=== PATIENT | female | born 1960 | race African-American/Black ===

== ENCOUNTER 2016-08-01 11:22 | Emergency (ER) | payer MEDICARE, MEDICAID ==
[~2016-08-01] VITALS: Ht 152.4 cm; Wt 133.0 kg
[~2016-08-01 11:22] MED LIST: ACET500T3 PO; ALBU6.7H INH; ALPR.5 PO; AMLO10 PO; ASPI-110 PO; BUTA1TAB30 PO; CALC600T25 PO; FURO40TA PO; HYDR-3133 PO; HYDR50TA15 PO; LISI40TA PO; METF500T PO; METO100T PO; MULT-135 PO; NITR0.4S SL; PERC7.5T13 PO; POTA-88 PO; VENTAER INH; WARF-21 PO; WARF-23 PO; ZANT150T2 PO; ZOVI400T PO; [UNRECOGNIZED DRUG - OTHER] PO
[2016-08-01 11:23] VITALS: BP 160/81; PULSE 76; RESP 15; TEMP 97.6; O2SAT 100
--- NOTE | 2016-08-01 11:54 | PD ---
HPI Chief Complaint: Complaint Time Seen by Provider: 11:45 Travel History International Travel<30 days: No Contact w/Intl Traveler<30days: No Traveled to known affect area: No History of Present Illness HPI 56-year-old female came to the emergency room with history of some dysuria and blood when she wiped herself after urinating. Symptoms started last night. Vital signs are stable. Patient has had complete hysterectomy in the past for fibroid. Currently she does not appear to be in any significant distress. PFSH Past Medical History Narrative Medical List of her past medical history as reviewed from the nursing note. Hx Anticoagulant Therapy: Yes (COUMADIN) Arthritis: Yes Asthma: Yes Atrial Fibrillation: Yes Blood Disorders: No Anxiety: Yes Depression: Yes Heart Rhythm Problems: Yes (A-FIB, TAKES COUMADIN AND ASPIRIN) Cancer: No Cardiac Catheterization: Yes (X 2 IN 2005 F/B DR PAUL) Cardiovascular Problems: Yes (2005) High Cholesterol: Yes Chemotherapy: No Chest Pain: Yes Congestive Heart Failure: No COPD: Yes Coronary Artery Disease: Yes Diabetes: Yes Diminished Hearing: No Diverticulitis: Yes Endocrine: Yes Gastrointestinal Disorders: Yes GERD: Yes Genitourinary: No Headaches: Yes Hypertension: Yes Immune Disorder: No Musculoskeletal: Yes (ARTHRITIS BILATERAL KNEES) Neurologic: No Psychiatric: Yes Reproductive: No Respiratory: Yes (SLEEP APNEA, ASTHMA) Myocardial Infarction: Yes Radiation Therapy: No Sleep Apnea: Yes (USES CPAP AT HOME) Thyroid Disease: No PNEUMOCCOCAL Vaccine (Year): NONE Menopausal: Yes : 3 Para: 3 Miscarriage: 0 : 0 Past Surgical History Abdominal Surgery: Yes (CYST AROUND UMBILICUS REMOVED) Appendectomy: Yes Body Medical Devices: C PAP AT NIGHT WITH 2% OXYGEN Section: Yes (X3) Cholecystectomy: Yes Hysterectomy: Yes Neurologic Surgery: No Other Surgery: Yes (abd cyst) Social History Alcohol Use: No Tobacco Use: No Substance Use: No Allergies-Medications (Allergen,Severity, Reaction): Coded Allergies: Robitussin (Verified Allergy, Severe, SHAKES, 08/01/16) Comments List of her allergies reviewed from the nursing note. Reported Meds & Prescriptions Reported Meds & Active Scripts Active Macrobid (Nitrofurantoin Monoh/Nitrofur Macro) 100 Mg Cap 100 Mg PO BID 10 Days Reported Warfarin 7.5 Mg Tab 7.5 Mg PO MOWEFR Warfarin 5 Mg Tab 5 Mg PO SUTUTHSA Zantac (Ranitidine HCl) 150 Mg Tab 150 Mg PO BID Klor-Con M10 (Potassium Chloride Microencaps) 10 Meq Tab 10 Meq PO DAILY Percocet (Oxycodone-Acetaminophen) 7.5-325 mg Tab 1 Tab PO Q6H PRN Nitrostat SL (Nitroglycerin) 0.4 Mg Subl 0.4 Mg SL ONCE Multi Vitamin (Multiple Vitamin) 1 Tab Tab 1 Tab PO DAILY Metoprolol Tartrate 100 Mg Tab 150 Mg PO BID Metformin (Metformin HCl) 500 Mg Tab 500 Mg PO BIDPC With meals Lisinopril 40 Mg Tab 40 Mg PO BID Hydralazine (Hydralazine HCl) 50 Mg Tab 50 Mg PO QID Take with a meal Furosemide 40 Mg Tab 40 Mg PO BID D-400 (Cholecalciferol) 400 Unit Tab 400 Units PO DAILY Calcium (Calcium Carbonate) 600 Mg Tab 600 Mg PO DAILY Butalbital-Acetaminophen 50-325 Mg Tab 1-2 Tab PO Q6HR PRN Do not exceed 6 tablets per day. Hydroxyzine HCl 25 Mg Tab 25 Mg PO QID Aspirin 81 (Aspirin) 81 Mg Tabdr 81 Mg PO DAILY Norvasc (Amlodipine Besylate) 10 Mg Tab 10 Mg PO DAILY Xanax (Alprazolam) 0.5 Mg Tab 0.5 Mg PO BID PRN Ventolin Hfa 18 GM Inh (Albuterol Sulfate) 90 Mcg/Act Aer 2 Puff INH DIRECTED PRN Acetaminophen 500 Mg Tab 1,000 Mg PO Q6H PRN Narrative Medication List of her home medications reviewed from the nursing note. Review of Systems Except as stated in HPI: all other systems reviewed are Neg Physical Exam Narrative GENERAL: Awake, alert, obese, no obvious distress SKIN: Warm and dry. HEAD: Atraumatic. Normocephalic. EYES: Pupils equal and round. No scleral icterus. No injection or drainage. ENT: No nasal bleeding or discharge. Mucous membranes pink and moist. NECK: Trachea midline. No JVD. CARDIOVASCULAR: Regular rate and rhythm. No murmur appreciated. RESPIRATORY: No accessory muscle use. Clear to auscultation. Breath sounds equal bilaterally. GASTROINTESTINAL: Abdomen soft, non-tender, nondistended. Hepatic and splenic margins not palpable. MUSCULOSKELETAL: No obvious deformities. No clubbing. No cyanosis. No edema. NEUROLOGICAL: Awake and alert. No obvious cranial nerve deficits. Motor grossly within normal limits. Normal speech. PSYCHIATRIC: Appropriate mood and affect; insight and judgment normal. Data Data Last Documented VS Vital Signs Date Time Temp Pulse Resp B/P Pulse Ox O2 Delivery O2 Flow Rate FiO2 08/01/16 15:54 80 20 147/69 98 08/01/16 13:57 Room Air 08/01/16 11:23 97.6 Orders Urinalysis - C+S If Indicated (08/01/16 11:57) Urine Culture (08/01/16 12:00) Nitrofurantoin Monohyd Macrocr (Macrobid (08/01/16 13:00) Complete Blood Count With Diff (08/01/16 13:20) Basic Metabolic Panel (Bmp) (08/01/16 13:20) Prothrombin Time / Inr (Pt) (08/01/16 13:20) Labs Laboratory Tests Test 08/01/16 08/01/16 12:00 13:45 Urine Color YELLOW Urine Turbidity HAZY Urine pH 5.0 Urine Specific [place] 1.017 Urine Protein TRACE mg/dL Urine Glucose (UA) NEG mg/dL Urine Ketones NEG mg/dL Urine Occult Blood MOD Urine Nitrite NEG Urine Bilirubin NEG Urine Urobilinogen LESS THAN 2.0 MG/DL Urine Leukocyte Esterase LARGE Urine RBC 7 /hpf Urine WBC 41 /hpf Urine WBC Clumps RARE Urine Squamous Epithelial 1 /hpf Cells Urine Bacteria MOD /hpf Urine Mucus FEW /lpf Microscopic Urinalysis Comment CULTURE INDICATED White Blood Count 7.2 TH/MM3 Red Blood Count 4.72 MIL/MM3 Hemoglobin 13.0 GM/DL Hematocrit 39.3 % Mean Corpuscular Volume 83.3 FL Mean Corpuscular Hemoglobin 27.7 PG Mean Corpuscular Hemoglobin 33.2 % Concent Red Cell Distribution Width 15.3 % Platelet Count 246 TH/MM3 Mean Platelet Volume 7.4 FL Neutrophils (%) (Auto) 58.6 % Lymphocytes (%) (Auto) 27.2 % Monocytes (%) (Auto) 10.4 % Eosinophils (%) (Auto) 3.2 % Basophils (%) (Auto) 0.6 % Neutrophils # (Auto) 4.2 TH/MM3 Lymphocytes # (Auto) 2.0 TH/MM3 Monocytes # (Auto) 0.8 TH/MM3 Eosinophils # (Auto) 0.2 TH/MM3 Basophils # (Auto) 0.0 TH/MM3 CBC Comment DIFF FINAL Differential Comment Prothrombin Time 14.7 SEC Prothromb Time International 1.3 RATIO Ratio Sodium Level 142 MEQ/L Potassium Level 4.0 MEQ/L Chloride Level 106 MEQ/L Carbon Dioxide Level 29.5 MEQ/L Anion Gap 7 MEQ/L Blood Urea Nitrogen 19 MG/DL Creatinine 0.87 MG/DL Estimat Glomerular Filtration 81 ML/MIN Rate Random Glucose 100 MG/DL Calcium Level 8.9 MG/DL [facility] Medical Decision Making Medical Screen Exam Complete: Yes Emergency Medical Condition: Yes Medical Record Reviewed: Yes Differential Diagnosis UTI, hemorrhagic cystitis Narrative Course 1:19 PM UA suggestive of UTI. I've given her dose of Macrobid. Given the fact that patient is on Coumadin I've ordered INR for her. Procedures EKG Prior to Arrival: No Diagnosis Primary Impression: UTI (urinary tract infection) Qualified Code: N39.0 - Urinary tract infection with hematuria, site unspecified Referrals: Primary Care Physician 2 days Additional Instructions: Please return to the ER if the condition worsens or any other new concerns. Take medication as per the prescription direction. Follow-up with your primary care in couple days. Med/Other Pt SpecificInfo: Prescription(s) given Scripts Nitrofurantoin Monohydrate Macrocrystals (Macrobid)100 Mg Wii362 Mg PO BID 10 Days Ref 0 Prov:Toby Livingston MD 08/01/16 Disposition: 01 DISCHARGE HOME Condition: Stable Toby Livingston MD Aug 01, 2016 11:54
[2016-08-01 12:02] VITALS: BP 139/73; PULSE 73; RESP 20; O2SAT 96
[2016-08-01 12:42] LABS: BACTERIA, URINE MOD /hpf; BLOOD, URINE MOD (NEG); COMMENT (UR) CULTURE INDICATED; CULTURE IF INDICATED CULTURE INDICATED; GLUCOSE,URINE NEG (NEG); KETONE, URINE NEG (NEG); MUCUS URINE FEW /lpf (OCC); NITRITE,URINE NEG (NEG); SQUAMOUS EPITHELIAL CELL URINE 1 /hpf (0-5); URINE COLOR YELLOW (YELLW/STRAW)
[2016-08-01] MEDS ORDERED: NITROFURANTOIN MONOHYD MACROCR 100 MG CAP PO ONE (13:00)
[2016-08-01 13:57] VITALS: BP 145/77; PULSE 72; RESP 20; O2SAT 98
[2016-08-01 14:05] LABS: AUTOMATED NEUTROPHIL # 4.2 TH/MM3 (1.8-7.7); BASOPHIL % 0.6 % (0.0-2.0); EOSINOPHIL # 0.2 TH/MM3 (0-0.4); EOSINOPHIL % 3.2 % (0.0-4.0); HEMATOCRIT 39.3 % (35.0-46.0); HEMO FLAGS DIFF FINAL; LYMPH % 27.2 % (9.0-44.0); MEAN CELL VOLUME 83.3 FL (80.0-100.0); MEAN CORPUSCULAR HEMOGLOBIN 27.7 PG (27.0-34.0); MEAN CORPUSCULAR HGB CONC 33.2 % (32.0-36.0); MONO % 10.4 % (0.0-8.0); NEUT % 58.6 % (16.0-70.0); PLATELET COUNT 246 TH/MM3 (150-450); RED BLOOD COUNT 4.72 MIL/MM3 (4.00-5.30); RED CELL DISTRIBUTION WIDTH 15.3 % (11.6-17.2); WHITE BLOOD COUNT 7.2 TH/MM3 (4.0-11.0)
[2016-08-01 14:10] LABS: INTERNATIONAL NORMALIZED RATIO 1.3 RATIO; PROTHROMBIN TIME - PATIENT 14.7 SEC (9.8-11.6)
[2016-08-01] MEDS ORDERED: MACR100C2 PO (14:14)
[2016-08-01 14:22] LABS: BICARBONATE 29.5 MEQ/L (21.0-32.0)
[2016-08-01 15:54] VITALS: BP 147/69
== END 2016-08-01 16:50 | disposition home or self-care (01) ==
LOC: NEPC 11:22
DX: N39.0 Urinary tract infection, site not specified (principal); B96.1 Klebsiella pneumoniae [K. pneumoniae] as the cause of diseases classified elsewhere; R31.9 Hematuria, unspecified
CPT/HCPCS: 80048; 81001; 85025; 85610; 87077; 87086; 87186; 99283

== ENCOUNTER 2016-10-11 12:57 | Emergency (ER) | payer MEDICARE, MEDICAID ==
[~2016-10-11] VITALS: Ht 152.4 cm; Wt 135.0 kg
[~2016-10-11 12:57] MED LIST changes: -ALBU6.7H INH; +MACR100C2 PO; -ZOVI400T PO
[2016-10-11 12:59] VITALS: BP 173/82; PULSE 82; RESP 24; TEMP 97.9; O2SAT 97
[2016-10-11 15:39] LABS: BACTERIA, URINE MOD /hpf; BLOOD, URINE NEG (NEG); COMMENT (UR) CULTURE INDICATED; CULTURE IF INDICATED CULTURE INDICATED; GLUCOSE,URINE NEG (NEG); KETONE, URINE NEG (NEG); MUCUS URINE FEW /lpf (OCC); NITRITE,URINE NEG (NEG); PH, URINE 5.5 (5.0-8.5); SQUAMOUS EPITHELIAL CELL URINE 3 /hpf (0-5); URINE COLOR YELLOW (YELLW/STRAW)
[2016-10-11 16:34] VITALS: BP 155/91; PULSE 84; RESP 18; RESP 20; O2SAT 98; O2SAT 99
[2016-10-11] MEDS ORDERED: SODIUM CHLOR 0.9% 1000 ML INJ 1,000 ML IV SCH (16:43)
[2016-10-11] MEDS ORDERED: MORPHINE SULFATE 4 MG/ML INJ IV PUSH ONE (16:45)
[2016-10-11] MEDS ORDERED: ONDANSETRON HCL 4 MG/2 ML VIAL IVP ONE (16:45)
--- NOTE | 2016-10-11 17:14 | PD ---
HPI Chief Complaint: Abdominal Pain Time Seen by Provider: 17:10 Travel History International Travel<30 days: No Contact w/Intl Traveler<30days: No Traveled to known affect area: No History of Present Illness HPI 56-year-old female that presents to the ED for evaluation of nausea and left lower quadrant abdominal pain. Per patient she's had this before and feels very similar to her diverticulitis in the past. Per patient she's been hoping that he would get better but he has not. This has been ongoing for 2 days. Per patient she also feels dizzy and stating that she feels like the room spinning. Per patient this is normal with this scan is symptoms. She denies any bowel movement issues. States having some nausea but no actual vomiting. Nothing seems to make the pain better or worse. Per patient she went to jew today and after jew she felt that the symptoms were improving so she came here instead. She has an INT to [employer]. She has not taken anything for this. Pain stays mainly in the right lower quadrant. Per patient pain is 6 out of 10. Does not radiate. Denies any urinary symptoms. No vaginal discharge or bleeding. PFSH Past Medical History Hx Anticoagulant Therapy: Yes (COUMADIN) Arthritis: Yes Asthma: Yes Atrial Fibrillation: Yes Blood Disorders: No Anxiety: Yes Depression: Yes Heart Rhythm Problems: Yes (A-FIB, TAKES COUMADIN AND ASPIRIN) Cancer: No Cardiac Catheterization: Yes (X 2 IN 2005 F/B DR PAUL) Cardiovascular Problems: Yes (CO, AFIB) High Cholesterol: Yes Chemotherapy: No Chest Pain: Yes Congestive Heart Failure: No COPD: Yes Coronary Artery Disease: Yes Diabetes: Yes Patient Takes Glucophage: Yes Diminished Hearing: No Diverticulitis: Yes Endocrine: Yes Gastrointestinal Disorders: Yes GERD: Yes Genitourinary: No Headaches: Yes Hypertension: Yes Immune Disorder: No Musculoskeletal: Yes (ARTHRITIS BILATERAL KNEES) Neurologic: No Psychiatric: Yes Reproductive: No Respiratory: Yes (SLEEP APNEA, ASTHMA) Myocardial Infarction: Yes Radiation Therapy: No Sleep Apnea: Yes (USES CPAP AT HOME) Thyroid Disease: No Tetanus Vaccination: Unknown Influenza Vaccination: No PNEUMOCCOCAL Vaccine (Year): NONE Menopausal: Yes : 3 Para: 3 Miscarriage: 0 : 0 Past Surgical History Abdominal Surgery: Yes (CYST AROUND UMBILICUS REMOVED) Appendectomy: Yes Body Medical Devices: C PAP AT NIGHT WITH 2% OXYGEN Section: Yes (X3) Cholecystectomy: Yes Hysterectomy: Yes Neurologic Surgery: No Other Surgery: Yes (abd cyst) Family History Family Myocardial Infarction: Yes Social History Alcohol Use: No Tobacco Use: No Substance Use: No Allergies-Medications (Allergen,Severity, Reaction): Coded Allergies: Robitussin (Verified Allergy, Severe, SHAKES, 10/11/16) Reported Meds & Prescriptions Reported Meds & Active Scripts Active Reported Warfarin 7.5 Mg Tab 7.5 Mg PO MOWEFR Warfarin 5 Mg Tab 5 Mg PO SUTUTHSA Zantac (Ranitidine HCl) 150 Mg Tab 150 Mg PO BID Klor-Con M10 (Potassium Chloride Microencaps) 10 Meq Tab 10 Meq PO DAILY Percocet (Oxycodone-Acetaminophen) 7.5-325 mg Tab 1 Tab PO Q6H PRN Nitrostat SL (Nitroglycerin) 0.4 Mg Subl 0.4 Mg SL ONCE Multi Vitamin (Multiple Vitamin) 1 Tab Tab 1 Tab PO DAILY Metoprolol Tartrate 100 Mg Tab 150 Mg PO BID Metformin (Metformin HCl) 500 Mg Tab 500 Mg PO BIDPC With meals Lisinopril 40 Mg Tab 40 Mg PO BID Hydralazine (Hydralazine HCl) 50 Mg Tab 50 Mg PO QID Take with a meal Furosemide 40 Mg Tab 40 Mg PO BID D-400 (Cholecalciferol) 400 Unit Tab 400 Units PO DAILY Calcium (Calcium Carbonate) 600 Mg Tab 600 Mg PO DAILY Butalbital-Acetaminophen 50-325 Mg Tab 1-2 Tab PO Q6HR PRN Do not exceed 6 tablets per day. Hydroxyzine HCl 25 Mg Tab 25 Mg PO QID Aspirin 81 (Aspirin) 81 Mg Tabdr 81 Mg PO DAILY Norvasc (Amlodipine Besylate) 10 Mg Tab 10 Mg PO DAILY Xanax (Alprazolam) 0.5 Mg Tab 0.5 Mg PO BID PRN Ventolin Hfa 18 GM Inh (Albuterol Sulfate) 90 Mcg/Act Aer 2 Puff INH DIRECTED PRN Acetaminophen 500 Mg Tab 1,000 Mg PO Q6H PRN Review of Systems General / Constitutional: No: Fever, Chills, Weight Gain, Weight Loss, Other Eyes: No: Diploplia, Blurred Vision, Photophobia, Drainage, Redness, Foreign Body Sensation, Pain, Tearing, Blind Spots, Visual changes, Blindness, Other HENT: No: Headaches, Vertigo, Lightheadedness, Sore Throat, Rhinitis, Rhinorrhea, Congestion, Nosebleed, Neck Stiffness, Neck Pain, Masses, Gingival Bleeding, Dental Difficulties, Ear Discharge, Earache, Other Cardiovascular: No: Chest Pain or Discomfort, Palpitations, Irregular Rhythm, Tachycardia, Diaphoresis, Syncope, Dyspnea on exertion, Varicosities, Edema, Cyanosis, Varicosities, Phlebitis, Claudication, Other Respiratory: No: Cough, Shortness of Breath, Wheezing, Sneezing, Orthopnea, Hemoptysis, Stridor, Night Sweats, Pleuritic Pain, Other Gastrointestinal: Positive: Nausea, Vomiting, Abdominal Pain, No: Diarrhea, Hematemesis, Hematochezia, Constipation, Changes in Bowel Habits, Indigestion, Dysphagia, Loss of Appetite, Other Genitourinary: No: Urgency, Frequency, Dysuria, Nocturia, Hematuria, Decreased Urinary Output, Oliguria, Hesitancy, Dribbling, Incontinence, Pelvic Pain, Flank Pain, Dyspareunia, Discharge, Dysmenorrhea, Menorrhagia, Metorrhagia, Vaginal Bleeding, Other Musculoskeletal: No: Myalgias, Arthralgias, Limited ROM, Weakness, Cramping, Edema, Pain, Atrophy, Other Skin: No Rash, No Itching, No Dryness, No Lumps, No Hives, No Change in Pigmentation, No Change in nails, No Alopecia, No Lesions, No Breast Lumps, No Breast Tenderness, No Breast Swelling, No Other Neurologic: No: Weakness, Dizziness, Syncope, Focal Abnormalities, Coordination Problem, Tremor, Ataxia, Headache, Change in Mentation, Slurred Speech, Paresthesia, Incontinence, Seizures, Sensory Disturbance, Other Psychiatric: No: Anxiety, Depression, Suicidal Ideations, Disorder of Thought, Mood Disorder, Substance Abuse, Homicidal Ideation, Other Endocrine: No: Heat Intolerance, Cold Intolerance, Polyuria, Polydipsia, Other Hematologic/Lymphatic: No: Easy Bruising, Lymph Node Enlargement, Other Physical Exam Narrative GENERAL: SKIN: Warm and dry. HEAD: Atraumatic. Normocephalic. EYES: Pupils equal and round. No scleral icterus. No injection or drainage. ENT: No nasal bleeding or discharge. Mucous membranes pink and moist. Tongue is midline. No uvula deviation. NECK: Trachea midline. No JVD. CARDIOVASCULAR: Regular rate and rhythm. No murmurs, S3, S4. RESPIRATORY: No accessory muscle use. Clear to auscultation. Breath sounds equal bilaterally. GASTROINTESTINAL: Abdomen soft, tenderness to palpation on the left lower quadrant, nondistended. Hepatic and splenic margins not palpable. MUSCULOSKELETAL: Extremities without clubbing, cyanosis, or edema. No obvious deformities. Full range of motion of the upper and lower extremities bilaterally. 2+ pulses bilaterally. NEUROLOGICAL: Awake and alert. No obvious cranial nerve deficits. Motor grossly within normal limits. Five out of 5 muscle strength in the arms and legs. Normal speech. PSYCHIATRIC: Appropriate mood and affect; insight and judgment normal. Data Data Last Documented VS Vital Signs Date Time Temp Pulse Resp B/P Pulse Ox O2 Delivery O2 Flow Rate FiO2 10/11/16 18:38 86 18 159/73 96 Room Air 10/11/16 12:59 97.9 Orders Complete Blood Count With Diff (10/11/16 13:23) Comprehensive Metabolic Panel (10/11/16 13:23) Urinalysis - C+S If Indicated (10/11/16 13:23) Iv Access Insert/Monitor (10/11/16 13:23) Oxygen Administration (10/11/16 13:23) Oximetry (10/11/16 13:23) Lipase (10/11/16 13:23) Urine Culture (10/11/16 13:37) Morphine Inj (Morphine Inj) (10/11/16 16:45) Ondansetron Inj (Zofran Inj) (10/11/16 16:45) Sodium Chlor 0.9% 1000 Ml Inj (Ns 1000 M (10/11/16 16:43) Ct Abd/Pel W Iv Contrast(Rout) (10/11/16 ) Orthostatic Vital Signs (10/11/16 17:44) Iohexol 350 Inj (Omnipaque 350 Inj) (10/11/16 18:18) Labs Laboratory Tests Test 10/11/16 10/11/16 13:37 16:45 Urine Color YELLOW Urine Turbidity HAZY Urine pH 5.5 Urine Specific [place] 1.016 Urine Protein TRACE mg/dL Urine Glucose (UA) NEG mg/dL Urine Ketones NEG mg/dL Urine Occult Blood NEG Urine Nitrite NEG Urine Bilirubin NEG Urine Urobilinogen LESS THAN 2.0 MG/DL Urine Leukocyte Esterase NEG Urine RBC 1 /hpf Urine WBC 4 /hpf Urine Squamous Epithelial 3 /hpf Cells Urine Bacteria MOD /hpf Urine Mucus FEW /lpf Microscopic Urinalysis Comment CULTURE INDICATED White Blood Count 9.3 TH/MM3 Red Blood Count 4.53 MIL/MM3 Hemoglobin 12.9 GM/DL Hematocrit 37.9 % Mean Corpuscular Volume 83.7 FL Mean Corpuscular Hemoglobin 28.5 PG Mean Corpuscular Hemoglobin 34.1 % Concent Red Cell Distribution Width 15.0 % Platelet Count 278 TH/MM3 Mean Platelet Volume 7.7 FL Neutrophils (%) (Auto) 57.6 % Lymphocytes (%) (Auto) 28.4 % Monocytes (%) (Auto) 11.0 % Eosinophils (%) (Auto) 2.4 % Basophils (%) (Auto) 0.6 % Neutrophils # (Auto) 5.3 TH/MM3 Lymphocytes # (Auto) 2.6 TH/MM3 Monocytes # (Auto) 1.0 TH/MM3 Eosinophils # (Auto) 0.2 TH/MM3 Basophils # (Auto) 0.1 TH/MM3 CBC Comment DIFF FINAL Differential Comment Sodium Level 141 MEQ/L Potassium Level 3.6 MEQ/L Chloride Level 105 MEQ/L Carbon Dioxide Level 28.6 MEQ/L Anion Gap 7 MEQ/L Blood Urea Nitrogen 9 MG/DL Creatinine 0.95 MG/DL Estimat Glomerular Filtration 73 ML/MIN Rate Random Glucose 87 MG/DL Calcium Level 9.2 MG/DL Total Bilirubin 0.4 MG/DL Aspartate Amino Transf 12 U/L (AST/SGOT) Alanine Aminotransferase 22 U/L (ALT/SGPT) Alkaline Phosphatase 67 U/L Total Protein 8.3 GM/DL Albumin 3.4 GM/DL Lipase 402 U/L [facility] Medical Decision Making Medical Screen Exam Complete: Yes Emergency Medical Condition: Yes Medical Record Reviewed: Yes Interpretation(s) UA shows some bacteria Differential Diagnosis Diverticulitis versus gastroenteritis versus gastritis versus dizziness versus hypotension versus bleed Narrative Course 56-year-old female that presents to the ED for evaluation of possible diverticulitis. Patient was properly examined and was found to have signs and symptoms consistent with appears to be likely diverticulitis from history. Labs and imaging ordered. Patient was given IV fluids and medications. Case was signed out to my attending pending dispo. Manny Correa Oct 11, 2016 17:14
[2016-10-11 17:33] LABS: AUTOMATED NEUTROPHIL # 5.3 TH/MM3 (1.8-7.7); BASOPHIL # 0.1 TH/MM3 (0-0.2); BASOPHIL % 0.6 % (0.0-2.0); EOSINOPHIL # 0.2 TH/MM3 (0-0.4); EOSINOPHIL % 2.4 % (0.0-4.0); HEMATOCRIT 37.9 % (35.0-46.0); HEMO FLAGS DIFF FINAL; LYMPH % 28.4 % (9.0-44.0); LYMPHOCYTE # 2.6 TH/MM3 (1.0-4.8); MEAN CELL VOLUME 83.7 FL (80.0-100.0); MEAN CORPUSCULAR HEMOGLOBIN 28.5 PG (27.0-34.0); MEAN CORPUSCULAR HGB CONC 34.1 % (32.0-36.0); NEUT % 57.6 % (16.0-70.0); PLATELET COUNT 278 TH/MM3 (150-450); RED BLOOD COUNT 4.53 MIL/MM3 (4.00-5.30); WHITE BLOOD COUNT 9.3 TH/MM3 (4.0-11.0)
[2016-10-11 17:50] LABS: ALT (GPT) 22 U/L (10-53); ANION GAP 7 MEQ/L (5-15); AST (GOT) 12 U/L (15-37); BICARBONATE 28.6 MEQ/L (21.0-32.0); BLOOD UREA NITROGEN 9 MG/DL (7-18); CHLORIDE 105 MEQ/L (98-107); GLOMERULAR FILTRATION RATE 73 ML/MIN (>89); POTASSIUM 3.6 MEQ/L (3.5-5.1); SODIUM (NA) 141 MEQ/L (136-145)
[2016-10-11 17:52] LABS: ALKALINE PHOSPHATASE 67 U/L (45-117); TOTAL BILIRUBIN ADULT 0.4 MG/DL (0.2-1.0)
[2016-10-11] MEDS ORDERED: IOHEXOL 350 MG/ML 10 ML VIAL (for RAD DIAG) IV ONE (18:18)
[2016-10-11 18:33] VITALS: BP_SYST 159; BP_SYST 161; BP_SYST 206; BP_DIAS 114; BP_DIAS 69; BP_DIAS 73; RESP 18
[2016-10-11 18:38] VITALS: BP 159/73; PULSE 86; RESP 18; O2SAT 96
--- NOTE | 2016-10-11 18:48 | RADRPT ---
EXAM DATE/TIME: 10/11/2016 18:08 [place] COMPARISON: No previous studies available for comparison. INDICATIONS : Diffuse abdomen pain today. IV CONTRAST: 85 cc Omnipaque 350 (iohexol) IV ORAL CONTRAST: No oral contrast ingested. RADIATION DOSE: 27.07 CTDIvol (mGy) MEDICAL HISTORY : Hypertension. diabetes SURGICAL HISTORY : Hysterectomy. Appendectomy.Cholecystectomy. ENCOUNTER: Initial ACUITY: 1 day PAIN SCALE: 7/10 LOCATION: Bilateral abdomen TECHNIQUE: Volumetric scanning of the abdomen and pelvis was performed. Using automated exposure control and ad justment of the mA and/or kV according to patient size, radiation dose was kept as low as reasonably achievable to obtain optimal diagnostic quality images. FINDINGS: Lung bases are clear. No acute findings in the liver, spleen, adrenals, kidneys or pancreas. Previous cholecystectomy. There is acute sigmoid diverticulitis with mural thickening and perisigmoid inflammatory changes prox imally. No abscess, obstruction, free fluid or free air. There is a fat containing umbilical hernia measuring about 7.9 cm in maximal diameter. No acute bony abnormalities. CONCLUSION: 1. Acute sigmoid diverticulitis without abscess, obstruction, free fluid or free air. Vernon Montana MD on October 11, 2016 at 18:40 Board Certified Radiologist. This report was verified electronically.
[2016-10-11] MEDS ORDERED: CIPR-9 PO (19:36)
[2016-10-11] MEDS ORDERED: METR-1 PO (19:36)
[2016-10-11] MEDS ORDERED: NORC5TAB PO (19:36)
--- NOTE | 2016-10-11 19:37 | PD ---
Physical Exam Date Seen by Provider: Oct 11, 2016 Narrative Patient presents for left-sided abdominal pain Data Data Last Documented VS Vital Signs Date Time Temp Pulse Resp B/P Pulse Ox O2 Delivery O2 Flow Rate FiO2 10/11/16 18:38 86 18 159/73 96 Room Air 10/11/16 12:59 97.9 Orders Complete Blood Count With Diff (10/11/16 13:23) Comprehensive Metabolic Panel (10/11/16 13:23) Urinalysis - C+S If Indicated (10/11/16 13:23) Iv Access Insert/Monitor (10/11/16 13:23) Oxygen Administration (10/11/16 13:23) Oximetry (10/11/16 13:23) Lipase (10/11/16 13:23) Urine Culture (10/11/16 13:37) Morphine Inj (Morphine Inj) (10/11/16 16:45) Ondansetron Inj (Zofran Inj) (10/11/16 16:45) Sodium Chlor 0.9% 1000 Ml Inj (Ns 1000 M (10/11/16 16:43) Ct Abd/Pel W Iv Contrast(Rout) (10/11/16 ) Orthostatic Vital Signs (10/11/16 17:44) Iohexol 350 Inj (Omnipaque 350 Inj) (10/11/16 18:18) Labs Laboratory Tests Test 10/11/16 10/11/16 13:37 16:45 Urine Color YELLOW Urine Turbidity HAZY Urine pH 5.5 Urine Specific [place] 1.016 Urine Protein TRACE mg/dL Urine Glucose (UA) NEG mg/dL Urine Ketones NEG mg/dL Urine Occult Blood NEG Urine Nitrite NEG Urine Bilirubin NEG Urine Urobilinogen LESS THAN 2.0 MG/DL Urine Leukocyte Esterase NEG Urine RBC 1 /hpf Urine WBC 4 /hpf Urine Squamous Epithelial 3 /hpf Cells Urine Bacteria MOD /hpf Urine Mucus FEW /lpf Microscopic Urinalysis Comment CULTURE INDICATED White Blood Count 9.3 TH/MM3 Red Blood Count 4.53 MIL/MM3 Hemoglobin 12.9 GM/DL Hematocrit 37.9 % Mean Corpuscular Volume 83.7 FL Mean Corpuscular Hemoglobin 28.5 PG Mean Corpuscular Hemoglobin 34.1 % Concent Red Cell Distribution Width 15.0 % Platelet Count 278 TH/MM3 Mean Platelet Volume 7.7 FL Neutrophils (%) (Auto) 57.6 % Lymphocytes (%) (Auto) 28.4 % Monocytes (%) (Auto) 11.0 % Eosinophils (%) (Auto) 2.4 % Basophils (%) (Auto) 0.6 % Neutrophils # (Auto) 5.3 TH/MM3 Lymphocytes # (Auto) 2.6 TH/MM3 Monocytes # (Auto) 1.0 TH/MM3 Eosinophils # (Auto) 0.2 TH/MM3 Basophils # (Auto) 0.1 TH/MM3 CBC Comment DIFF FINAL Differential Comment Sodium Level 141 MEQ/L Potassium Level 3.6 MEQ/L Chloride Level 105 MEQ/L Carbon Dioxide Level 28.6 MEQ/L Anion Gap 7 MEQ/L Blood Urea Nitrogen 9 MG/DL Creatinine 0.95 MG/DL Estimat Glomerular Filtration 73 ML/MIN Rate Random Glucose 87 MG/DL Calcium Level 9.2 MG/DL Total Bilirubin 0.4 MG/DL Aspartate Amino Transf 12 U/L (AST/SGOT) Alanine Aminotransferase 22 U/L (ALT/SGPT) Alkaline Phosphatase 67 U/L Total Protein 8.3 GM/DL Albumin 3.4 GM/DL Lipase 402 U/L MDM Supervised Visit with VIRAL: Yes Narrative Course I, Dr. Boyd, have reviewed the advance practice practitioner's documentation and am in agreement, met with the patient face to face, made the diagnosis, and the medical decision making was done by me. *My assessment and Findings: The patient has diffuse abdominal tenderness without guarding or rebound. CBC & BMP Diagram 10/11/16 16:45 Last Impressions Abdomen/Pelvis CT 10/11/16 0000 Signed Impressions: Service Date/Time: Tuesday, October 11, 2016 18:08 - CONCLUSION: 1. Acute sigmoid diverticulitis without abscess, obstruction, free fluid or free air. Vernon Montana MD The patient will be treated as an outpatient for diverticulitis. Diagnosis Primary Impression: Diverticulitis large intestine w/o perforation or abscess w/o bleeding Patient Instructions: Diverticulitis (DC), General Instructions, Narcotic given in the ED Scripts Hydrocodone-Acetaminophen ([place])5-325 mg Tab1 Tab PO Q4H PRN (PAIN) #12 TAB Ref 0 Prov:Nita Boyd MD 10/11/16 Metronidazole (Flagyl)500 Mg Dog702 Mg PO BID 7 Days Ref 0 Prov:Nita Boyd MD 10/11/16 Ciprofloxacin (Cipro)500 Mg [id number] Mg PO BID 10 Days Ref 0 Prov:Nita Boyd MD 10/11/16 Disposition: 01 DISCHARGE HOME Condition: Stable Nita Boyd MD Oct 11, 2016 19:37
[2016-10-11] MEDS ORDERED: CIPROFLOXACIN 400 MG PREMIX 200 ML IV ONE (19:45)
[2016-10-11] MEDS ORDERED: metroNIDAZOLE 500 MG INJ 100 ML IV ONE (19:45)
[2016-10-11 20:30] VITALS: BP 158/71; PULSE 81; RESP 20; O2SAT 97
[2016-10-11 22:58] VITALS: BP 159/70; PULSE 85; RESP 20; O2SAT 97
== END 2016-10-11 22:59 | disposition home or self-care (01) ==
LOC: NEPA 12:57
DX: K57.32 Diverticulitis of large intestine without perforation or abscess without bleeding (principal); R42 Dizziness and giddiness; E11.9 Type 2 diabetes mellitus without complications; I10 Essential (primary) hypertension; E78.00 Pure hypercholesterolemia, unspecified; G47.30 Sleep apnea, unspecified; Z79.01 Long term (current) use of anticoagulants; Z79.84 Long term (current) use of oral hypoglycemic drugs; Z87.39 Personal history of other diseases of the musculoskeletal system and connective tissue; Z87.09 Personal history of other diseases of the respiratory system; Z86.79 Personal history of other diseases of the circulatory system; Z86.59 Personal history of other mental and behavioral disorders; Z87.19 Personal history of other diseases of the digestive system
CPT/HCPCS: 74177; 80053; 81001; 83690; 85025; 87086; 96361; 96365; 96367; 96375; 99284; J0744; J2270; J2405; J7030; Q9967

== ENCOUNTER 2016-10-16 05:52 | Emergency (ER) | payer MEDICARE, MEDICAID ==
[~2016-10-16 05:52] MED LIST changes: +CIPR-9 PO; -MACR100C2 PO; +METR-1 PO; +NORC5TAB PO
[2016-10-16 05:53] VITALS: BP 187/92; PULSE 86; RESP 16; TEMP 98; O2SAT 95
--- NOTE | 2016-10-16 06:23 | PD ---
HPI Chief Complaint: Injury Time Seen by Provider: 06:16 Travel History International Travel<30 days: No Contact w/Intl Traveler<30days: No Traveled to known affect area: No History of Present Illness HPI 56-year-old [id number] black female presents to emergency Department with complaints of right shoulder pain after falling off a hospital stretcher here at [place] waiting to get blood drawn. She states that she was in the triage area on a examination stretcher when she leaned over to the right side causing the stretcher to tip up and fall off onto the ground and into the cheek bucket alongside the bed. The patient states that she was assisted up off the ground. She was given ice pack. She was eventually seen in the back for her presenting complaint of abdominal pain. She was diagnosed with acute diverticulitis and given Lortab and antibiotics. She neglected to tell the treating ER physician of a fall. She states that she did not have any significant pain initially for the first day. She states that it was later on that she started developing pain. She states that her abdominal pain/ diverticulitis is improving but now she is having more problems with her right arm. She states that she has pain in the anterior portion of her shoulder. She has difficulty raising her hand beyond the level was shoulder. She denies any numbness, tingling. No focal weakness. No injury to the head or neck. Pain is moderate. Worse with movement. Some relief with the remaining still and holding her arm against her body. She denies any prior injury. She states that she had taken pictures in the examination room of the stretcher at the time she had fallen off. PFSH Past Medical History Hx Anticoagulant Therapy: Yes Arthritis: Yes Asthma: Yes Atrial Fibrillation: Yes Blood Disorders: No Anxiety: Yes Depression: Yes Heart Rhythm Problems: Yes (A-FIB, TAKES COUMADIN AND ASPIRIN) Cancer: No Cardiac Catheterization: Yes (X 2 IN 2005 F/B DR PAUL) Cardiovascular Problems: Yes High Cholesterol: Yes Chemotherapy: No Chest Pain: Yes Congestive Heart Failure: No COPD: Yes Coronary Artery Disease: Yes Diabetes: Yes Patient Takes Glucophage: Yes Diminished Hearing: No Diverticulitis: Yes Endocrine: Yes Gastrointestinal Disorders: Yes GERD: Yes Genitourinary: No Headaches: Yes Hypertension: Yes Immune Disorder: No Musculoskeletal: Yes (ARTHRITIS BILATERAL KNEES) Neurologic: No Psychiatric: Yes Reproductive: No Respiratory: Yes Myocardial Infarction: Yes Radiation Therapy: No Sleep Apnea: Yes (USES CPAP AT HOME) Thyroid Disease: No PNEUMOCCOCAL Vaccine (Year): NONE ?: Not Menopausal: Yes : 3 Para: 3 Miscarriage: 0 : 0 Past Surgical History Abdominal Surgery: Yes (CYST AROUND UMBILICUS REMOVED) Appendectomy: Yes Body Medical Devices: C PAP AT NIGHT WITH 2% OXYGEN Section: Yes (X3) Cholecystectomy: Yes Hysterectomy: Yes Neurologic Surgery: No Other Surgery: Yes (abd cyst) Family History Family Myocardial Infarction: Yes Social History Alcohol Use: No Tobacco Use: No Substance Use: No Allergies-Medications (Allergen,Severity, Reaction): Coded Allergies: Robitussin (Verified Allergy, Severe, SHAKES, 10/16/16) Reported Meds & Prescriptions Reported Meds & Active Scripts Active [place] (Hydrocodone-Acetaminophen) 5-325 mg Tab 1 Tab PO Q4H PRN Flagyl (Metronidazole) 500 Mg Tab 500 Mg PO BID 7 Days Cipro (Ciprofloxacin HCl) 500 Mg Tab 500 Mg PO BID 10 Days Reported Warfarin 7.5 Mg Tab 7.5 Mg PO MOWEFR Warfarin 5 Mg Tab 5 Mg PO SUTUTHSA Zantac (Ranitidine HCl) 150 Mg Tab 150 Mg PO BID Klor-Con M10 (Potassium Chloride Microencaps) 10 Meq Tab 10 Meq PO DAILY Percocet (Oxycodone-Acetaminophen) 7.5-325 mg Tab 1 Tab PO Q6H PRN Nitrostat SL (Nitroglycerin) 0.4 Mg Subl 0.4 Mg SL ONCE Multi Vitamin (Multiple Vitamin) 1 Tab Tab 1 Tab PO DAILY Metoprolol Tartrate 100 Mg Tab 150 Mg PO BID Metformin (Metformin HCl) 500 Mg Tab 500 Mg PO BIDPC With meals Lisinopril 40 Mg Tab 40 Mg PO BID Hydralazine (Hydralazine HCl) 50 Mg Tab 50 Mg PO QID Take with a meal Furosemide 40 Mg Tab 40 Mg PO BID D-400 (Cholecalciferol) 400 Unit Tab 400 Units PO DAILY Calcium (Calcium Carbonate) 600 Mg Tab 600 Mg PO DAILY Butalbital-Acetaminophen 50-325 Mg Tab 1-2 Tab PO Q6HR PRN Do not exceed 6 tablets per day. Hydroxyzine HCl 25 Mg Tab 25 Mg PO QID Aspirin 81 (Aspirin) 81 Mg Tabdr 81 Mg PO DAILY Norvasc (Amlodipine Besylate) 10 Mg Tab 10 Mg PO DAILY Xanax (Alprazolam) 0.5 Mg Tab 0.5 Mg PO BID PRN Ventolin Hfa 18 GM Inh (Albuterol Sulfate) 90 Mcg/Act Aer 2 Puff INH DIRECTED PRN Acetaminophen 500 Mg Tab 1,000 Mg PO Q6H PRN Review of Systems Except as stated in HPI: all other systems reviewed are Neg Physical Exam Narrative GENERAL: Well-developed, morbidly obese in no acute distress. Nontoxic appearing. HEAD: Normocephalic, atraumatic. EYES: Pupils equal round and reactive. Extraocular motions intact. No scleral icterus. No injection or drainage. ENT: TMs clear without erythema. The external auditory canals clear. Nose: clear . Posterior pharynx is pink and moist. No tonsillar edema or exudate. Uvula midline. Airway patent. NECK: Trachea midline.Supple, nontender, moves head freely. No central bony tenderness or spasm. CARDIOVASCULAR: Regular rate and rhythm without murmurs, gallops, or rubs. RESPIRATORY: Clear to auscultation. Breath sounds equal bilaterally. No wheezes , rales, or rhonchi. GASTROINTESTINAL: Abdomen soft, non-tender, large pannus. No guarding. EXTREMITIES: No clubbing, cyanosis, or edema. Examination of the right upper extremity reveals tenderness to the anterior component of the shoulder. No posterior component pain. There is no obvious joint effusion. No erythema or swelling. No crepitus. No pain in the elbow, wrist or hand. She has intact median/ulnar/radial nerves. She has good power plant engineer. She is able to raise her arm to the level of her shoulder but she cannot raise it over her head. Negative drop. She has good passive range of motion but does complain of pain with movement. No pain in the clavicle. BACK: Nontender without deformity or crepitance. No flank tenderness. Data Data Last Documented VS Vital Signs Date Time Temp Pulse Resp B/P Pulse Ox O2 Delivery O2 Flow Rate FiO2 10/16/16 05:53 98.0 86 16 187/92 95 Room Air Orders Shoulder, Complete (>2vws) (10/16/16 06:06) MDM Medical Decision Making Medical Screen Exam Complete: Yes Emergency Medical Condition: Yes Medical Record Reviewed: Yes Interpretation(s) Right shoulder: Negative for acute fracture. No subluxation. Differential Diagnosis MDM: High Differential diagnoses: Fracture, sprain, strain, dislocation, contusion, neurovascular injury Narrative Course This is a 56-year-old female who fell off the examination stretcher here at [place] injuring her right shoulder. She did not have any significant pain the day of the injury. This was not mentioned to the ER physician. She did take photographs of the stretcher she had fallen on the day of the injury. She returns to the ER because of worsening pain in the shoulder. X-rays are unremarkable. The patient is given a prescription for diclofenac to take in addition to her Lortab. She is advised to follow-up with her doctor or orthopedist within 1 week first for a recheck. This is right shoulder sprain Diagnosis Primary Impression: Sprain of right shoulder Qualified Code: S43.401A - Sprain of right shoulder, unspecified shoulder sprain type, initial encounter Patient Instructions: General Instructions Additional Instructions: Rest. Codman exercises as shown to the patient 4 times daily. Ice packs for any acute swelling and pain. Lortab. Follow-up with your doctor or an orthopedist within 1 week. Return to the ER for any problems. Med/Other Pt SpecificInfo: Prescription(s) given Scripts Hydrocodone-Acetaminophen ([place]ilmont)5-325 mg Tab1 Tab PO Q4H PRN (PAIN) #20 TAB Ref 0 Prov:Bill Roca MD 10/16/16 Disposition: 01 DISCHARGE HOME Condition: Stable Vernon Coronado Oct 16, 2016 06:23
[2016-10-16] MEDS ORDERED: DICL75TA PO (06:24)
[2016-10-16] MEDS ORDERED: NORC5TAB PO (06:53)
--- NOTE | 2016-10-16 06:58 | RADRPT ---
EXAM DATE/TIME: 10/16/2016 06:20 [facility] COMPARISON: No previous studies available for comparison. INDICATIONS : Right shoulder pain. MEDICAL HISTORY : Patient reports a fall one week ago. SURGICAL HISTORY : None. ENCOUNTER: Initial ACUITY: 1 week PAIN SCORE: 5/10 LOCATION: Right shoulder. FINDINGS: 4 views of the right shoulder demonstrate no fracture or dislocation. The acromioclavicular joint is intact but demonstrates mild osteoarthritis change. The visualized soft tissues demonstrate no abnorm ality. Visualized portions of the right lung are clear. No displaced rib fracture is seen. CONCLUSION: No acute right shoulder abnormality is identified. There is mild osteoarthritis at the acromioclavicu lar joint. Nitish Turner MD on October 16, 2016 at 6:56 Board Certified Radiologist. This report was verified electronically.
== END 2016-10-16 06:55 | disposition home or self-care (01) ==
LOC: NETRI 05:52
DX: S43.401A Unspecified sprain of right shoulder joint, initial encounter (principal); W06.XXXA Fall from bed, initial encounter; Y93.89 Activity, other specified; Y92.230 Patient room in hospital as the place of occurrence of the external cause; I48.91 Unspecified atrial fibrillation; E11.9 Type 2 diabetes mellitus without complications; I10 Essential (primary) hypertension; Z79.01 Long term (current) use of anticoagulants
CPT/HCPCS: 73030; 99283

== ENCOUNTER 2017-08-01 09:11 | Observation (INO) | payer MEDICARE, MEDICAID ==
[~2017-08-01] VITALS: Ht 152.4 cm; Wt 135.2 kg
[~2017-08-01 09:11] MED LIST changes: -ACET500T3 PO; -ASPI-110 PO; +ASPI1TAB57 PO; +AUGM875T3 PO; -CALC600T25 PO; +CALC600T5 PO; -HYDR50TA15 PO; +KLOR10TA6 PO; -MULT-135 PO; +NAPR500T2 PO; -POTA-88 PO; -[UNRECOGNIZED DRUG - OTHER] PO
--- NOTE | 2017-08-01 09:24 | PD ---
Physical Exam Time Seen by Provider: 09:22 Narrative 57yo female c/o midsternal chest pain x 2 weeks. +cough and SOB. +hx OH, asthma, COPD. Takes Coumadin. Denies hemoptysis. Darrin fevers, vomiting. Patient seen in triage. VS reviewed. Awaiting bed placement. See next providers note for final patient disposition. Data Data Last Documented VS Vital Signs Date Time Temp Pulse Resp B/P (MAP) Pulse Ox O2 Delivery O2 Flow Rate FiO2 08/01/17 09:27 98.5 80 16 147/81 (103) 95 Room Air Orders Orders Electrocardiogram (08/01/17 09:27) Chest, Single Ap (08/01/17 09:27) MDM Supervised Visit with VIRAL: Sintia Dunbar Aug 01, 2017 09:24
[2017-08-01 09:27] VITALS: BP 147/81; PULSE 80; RESP 16; TEMP 98.5; O2SAT 95
--- NOTE | 2017-08-01 09:58 | RADRPT ---
EXAM DATE/TIME: 08/01/2017 09:37 [facility] COMPARISON: CHEST SINGLE AP, July 01, 2015, 13:44. INDICATIONS : Cough and shortness of breath. MEDICAL HISTORY : None. SURGICAL HISTORY : None. ENCOUNTER: Initial ACUITY: 2 weeks PAIN SCORE: 0/10 LOCATION: Bilateral chest FINDINGS: Single AP view of the chest. The lungs are clear. Cardiomediastinal silhouette within normal limits. No evidence of pleural effusion or pneumothorax. CONCLUSION: No acute cardiopulmonary disease identified. Ezio Jacobson MD on August 01, 2017 at 9:54 Board Certified Radiologist. This report was verified electronically.
[2017-08-01] MEDS ORDERED: SODIUM CHLORIDE 0.9% FLUSH 10 ML FLUSH IVF PRN (11:15)
[2017-08-01] MEDS ORDERED: methylPREDNISolone SOD SUCC 125 MG/2 ML VIAL IV PUSH ONE (11:30)
[2017-08-01 11:54] LABS: BASOPHIL % 0.6 % (0.0-2.0); EOSINOPHIL # 0.1 TH/MM3 (0-0.4); EOSINOPHIL % 1.5 % (0.0-4.0); HEMATOCRIT 41.4 % (35.0-46.0); HEMOGLOBIN 13.5 GM/DL (11.6-15.3); LYMPH % 19.5 % (9.0-44.0); LYMPHOCYTE # 1.1 TH/MM3 (1.0-4.8); MEAN CELL VOLUME 85.4 FL (80.0-100.0); MEAN CORPUSCULAR HEMOGLOBIN 27.9 PG (27.0-34.0); MEAN CORPUSCULAR HGB CONC 32.6 % (32.0-36.0); MEAN PLATELET VOLUME 7.5 FL (7.0-11.0); MONO % 9.8 % (0.0-8.0); MONOCYTE # 0.6 TH/MM3 (0-0.9); NEUT % 68.6 % (16.0-70.0); PLATELET COUNT 258 TH/MM3 (150-450); RED BLOOD COUNT 4.85 MIL/MM3 (4.00-5.30); RED CELL DISTRIBUTION WIDTH 15.7 % (11.6-17.2); WHITE BLOOD COUNT 5.9 TH/MM3 (4.0-11.0)
[2017-08-01 12:15] LABS: BICARBONATE 27.2 MEQ/L (21.0-32.0); BLOOD UREA NITROGEN 13 MG/DL (7-18); CALCIUM 8.9 MG/DL (8.5-10.1); CHLORIDE 107 MEQ/L (98-107); CREATININE 0.99 MG/DL (0.50-1.00); GLOMERULAR FILTRATION RATE 70 ML/MIN (>89); GLUCOSE,RANDOM 86 MG/DL (74-106); SODIUM (NA) 139 MEQ/L (136-145)
[2017-08-01 12:17] LABS: TROPONIN I LESS THAN 0.02 NG/ML (0.02-0.05)
[2017-08-01] MEDS: RESP: ALBUTEROL 2.5 MG/IPRATROPIUM 0.5 MG NEB (SCH) INH ×2 (12:26→12:27)
[2017-08-01] MEDS ORDERED: IOHEXOL 350 MG/ML 10 ML VIAL (for RAD DIAG) IVCONTRAST ONE (13:15)
--- NOTE | 2017-08-01 13:25 | RADRPT ---
EXAM DATE/TIME: 08/01/2017 13:01 [facility] COMPARISON: CHEST SINGLE AP, August 01, 2017, 9:37. INDICATIONS : Medial chest pain. Evaluate for embolism. Patient also complains of shortness of breath and Cough. IV CONTRAST: 70 cc Omnipaque 350 (iohexol) IV RADIATION DOSE: 10.96 CTDIvol (mGy) MEDICAL HISTORY : Cardiovascular disease. Hypertension. Afib, diabetes SURGICAL HISTORY : Appendectomy. Cholecystectomy.Hysterectomy. ENCOUNTER: Initial ACUITY: 2 weeks PAIN SCALE: 7/10 LOCATION: chest TECHNIQUE: Volumetric scanning of the chest was performed using a pulmonary embolism protocol MIP images were re constructed. Using automated exposure control and adjustment of the mA and/or kV according to patien t size, radiation dose was kept as low as reasonably achievable to obtain optimal diagnostic quality images. DICOM format image data is available electronically for review and comparison. Follow-up recommendations for detected pulmonary nodules are based at a minimum on nodule size and pa tient risk factors according to Fleischner Society Guidelines. FINDINGS: PULMONARY ARTERIES: No significant change has occurred. LUNGS: There is no consolidation or pneumothorax . No concerning pulmonary nodule is visualized. PLEURAE: There is no pleural thickening or pleural effusion. MEDIASTINUM: There is good visualization of the great vessels of the middle mediastinum. No evidence of mediastin al or hilar adenopathy/mass. MUSCULOSKELETAL: Within normal limits for patient age. MISCELLANEOUS: The visualized upper abdominal organs demonstrate no acute abnormality. CONCLUSION: 1. Negative exam with no evidence of pulmonary embolism. 2. The lungs are clear. Sudhir Montano MD on August 01, 2017 at 13:20 Board Certified Radiologist. This report was verified electronically.
--- NOTE | 2017-08-01 13:46 | PD ---
HPI Chief Complaint: Chest Pain Time Seen by Provider: 11:20 Travel History International Travel<30 days: No Contact w/Intl Traveler<30days: No Traveled to known affect area: No History of Present Illness HPI Patient is a 57-year-old female who comes in complaining of chest pain or shortness of breath. She says she has been coughing for 2 weeks, and now she has pain to the middle of her chest. She says she is short of breath when she lays flat and when she walks. She denies fever or chills. She has history of diabetes and hypertension. She says she has been using albuterol at home, but this does not seem to make her feel any better. PFSH Past Medical History Hx Anticoagulant Therapy: Yes (COUMADIN) Arthritis: Yes Asthma: Yes Atrial Fibrillation: Yes Blood Disorders: No Anxiety: Yes Depression: Yes Heart Rhythm Problems: Yes (A-FIB, TAKES COUMADIN AND ASPIRIN) Cancer: No Cardiac Catheterization: Yes (X 2 IN 2005 F/B DR PAUL) Cardiovascular Problems: Yes High Cholesterol: Yes Chemotherapy: No Chest Pain: Yes Congestive Heart Failure: No COPD: Yes Coronary Artery Disease: Yes Diabetes: Yes Patient Takes Glucophage: Yes Diminished Hearing: No Diverticulitis: Yes Endocrine: Yes Gastrointestinal Disorders: Yes GERD: Yes Genitourinary: No Headaches: Yes Hypertension: Yes Immune Disorder: No Musculoskeletal: Yes (ARTHRITIS BILATERAL KNEES) Neurologic: No Psychiatric: Yes Reproductive: No Respiratory: Yes Myocardial Infarction: Yes Radiation Therapy: No Seizures: No Sleep Apnea: Yes (USES CPAP AT HOME) Thyroid Disease: No PNEUMOCCOCAL Vaccine (Year): NONE Menopausal: Yes : 3 Para: 3 Miscarriage: 0 : 0 Past Surgical History Abdominal Surgery: Yes (CYST AROUND UMBILICUS REMOVED) Appendectomy: Yes Body Medical Devices: C PAP AT NIGHT WITH 2% OXYGEN Cardiac Surgery: Yes (CARDIAC CATH OCTOBER 2005) Section: Yes (X3) Cholecystectomy: Yes Gynecologic Surgery: Yes (JOSE FRANCISCO / X3) Hysterectomy: Yes Neurologic Surgery: No Other Surgery: Yes (abd cyst) Family History Family Myocardial Infarction: Yes Social History Alcohol Use: No Tobacco Use: No Substance Use: No Allergies-Medications (Allergen,Severity, Reaction): Coded Allergies: guaifenesin (Unverified Allergy, Severe, SHAKES, 05/17/17) Reported Meds & Prescriptions Reported Meds & Active Scripts Active Naproxen 500 Mg Tab 500 Mg PO BID 10 Days [place] (Hydrocodone-Acetaminophen) 5-325 mg Tab 1 Tab PO Q4H PRN Reported Warfarin 7.5 Mg Tab 7.5 Mg PO MOWEFR Warfarin 5 Mg Tab 5 Mg PO SUTUTHSA Zantac (Ranitidine HCl) 150 Mg Tab 150 Mg PO BID Klor-Con M10 (Potassium Chloride Microencaps) 10 Meq Tab 10 Meq PO DAILY Percocet (Oxycodone-Acetaminophen) 7.5-325 mg Tab 1 Tab PO Q6H PRN Nitrostat SL (Nitroglycerin) 0.4 Mg Subl 0.4 Mg SL ONCE Metoprolol Tartrate 100 Mg Tab 150 Mg PO BID Metformin (Metformin HCl) 500 Mg Tab 500 Mg PO BIDPC With meals Lisinopril 40 Mg Tab 40 Mg PO BID Furosemide 40 Mg Tab 40 Mg PO BID Calcium (Calcium Carbonate) 600 Mg Tab 600 Mg PO DAILY Hydroxyzine HCl 25 Mg Tab 25 Mg PO QID Aspirin 81 (Aspirin) 81 Mg Tabdr 81 Mg PO DAILY Norvasc (Amlodipine Besylate) 10 Mg Tab 10 Mg PO DAILY Xanax (Alprazolam) 0.5 Mg Tab 0.5 Mg PO BID PRN Ventolin Hfa 18 GM Inh (Albuterol Sulfate) 90 Mcg/Act Aer 2 Puff INH DIRECTED PRN Review of Systems Except as stated in HPI: all other systems reviewed are Neg ( ) General / Constitutional: No: Fever, Chills HENT: No: Headaches, Lightheadedness Cardiovascular: Positive: Chest Pain or Discomfort Respiratory: Positive: Cough, Shortness of Breath Gastrointestinal: No: Nausea, Vomiting Genitourinary: No: Dysuria Musculoskeletal: No: Myalgias Skin: No Rash, No Change in Pigmentation Neurologic: No: Weakness, Dizziness, Syncope Physical Exam Narrative GENERAL: Awake and alert, in no acute distress. SKIN: Focused skin assessment warm/dry. HEAD: Atraumatic. Normocephalic. EYES: Pupils equal and round. No scleral icterus. ENT: Mucous membranes pink and moist. NECK: Trachea midline. No JVD. CARDIOVASCULAR: Regular rate and rhythm. No murmur appreciated. RESPIRATORY: No accessory muscle use. Clear to auscultation. Breath sounds equal bilaterally. GASTROINTESTINAL: Abdomen soft, non-tender, nondistended. MUSCULOSKELETAL: No obvious deformities. No clubbing. No cyanosis. No edema. NEUROLOGICAL: Awake and alert. No obvious cranial nerve deficits. Motor grossly within normal limits. Normal speech. PSYCHIATRIC: Appropriate mood and affect; insight and judgment normal. Data Data Last Documented VS Vital Signs Date Time Temp Pulse Resp B/P (MAP) Pulse Ox O2 Delivery O2 Flow Rate FiO2 08/01/17 09:27 98.5 80 16 147/81 (103) 95 Room Air Orders Orders Electrocardiogram (08/01/17 09:27) Chest, Single Ap (08/01/17 09:27) Basic Metabolic Panel (Bmp) (08/01/17 11:02) Ckmb (Isoenzyme) Profile (08/01/17 11:02) Complete Blood Count With Diff (08/01/17 11:02) Magnesium (Mg) (08/01/17 11:02) Prothrombin Time / Inr (Pt) (08/01/17 11:02) Act Partial Throm Time (Ptt) (08/01/17 11:02) Troponin I (08/01/17 11:02) Ecg Monitoring (08/01/17 11:02) Iv Access Insert/Monitor (08/01/17 11:02) Oximetry (08/01/17 11:02) Oxygen Administration (08/01/17 11:02) Sodium Chloride 0.9% Flush (Ns Flush) (08/01/17 11:15) B-Type Natriuretic Peptide (08/01/17 11:29) Methylprednisolone So Succ Inj (Solumedr (08/01/17 11:30) Albuterol-Ipratropium Neb (Duoneb Neb) (08/01/17 11:30) CKMB (08/01/17 11:35) CKMB% (08/01/17 11:35) Ct Pulmonary Angiogram (08/01/17 12:27) Iohexol 350 Inj (Omnipaque 350 Inj) (08/01/17 13:15) Admit Order (Ed Use Only) (08/01/17 ) Labs Laboratory Tests Test 08/01/17 11:35 White Blood Count 5.9 TH/MM3 Red Blood Count 4.85 MIL/MM3 Hemoglobin 13.5 GM/DL Hematocrit 41.4 % Mean Corpuscular Volume 85.4 FL Mean Corpuscular Hemoglobin 27.9 PG Mean Corpuscular Hemoglobin Concent 32.6 % Red Cell Distribution Width 15.7 % Platelet Count 258 TH/MM3 Mean Platelet Volume 7.5 FL Neutrophils (%) (Auto) 68.6 % Lymphocytes (%) (Auto) 19.5 % Monocytes (%) (Auto) 9.8 % Eosinophils (%) (Auto) 1.5 % Basophils (%) (Auto) 0.6 % Neutrophils # (Auto) 4.0 TH/MM3 Lymphocytes # (Auto) 1.1 TH/MM3 Monocytes # (Auto) 0.6 TH/MM3 Eosinophils # (Auto) 0.1 TH/MM3 Basophils # (Auto) 0.0 TH/MM3 CBC Comment DIFF FINAL Differential Comment Prothrombin Time 20.0 SEC Prothromb Time International Ratio 2.0 RATIO Activated Partial Thromboplast Time 39.9 SEC Blood Urea Nitrogen 13 MG/DL Creatinine 0.99 MG/DL Random Glucose 86 MG/DL Calcium Level 8.9 MG/DL Magnesium Level 2.0 MG/DL Sodium Level 139 MEQ/L Potassium Level 4.0 MEQ/L Chloride Level 107 MEQ/L Carbon Dioxide Level 27.2 MEQ/L Anion Gap 5 MEQ/L Estimat Glomerular Filtration Rate 70 ML/MIN Total Creatine Kinase 183 U/L Creatine Kinase MB LESS THAN 0.5 NG/ML Troponin I LESS THAN 0.02 NG/ML B-Type Natriuretic Peptide 25 PG/ML MDM Medical Decision Making Medical Screen Exam Complete: Yes Emergency Medical Condition: Yes Medical Record Reviewed: Yes Interpretation(s) ECG shows NSR at 81, no ST elevation or depression. Differential Diagnosis ACS vs pneumonia vs Asthma exacerbation Narrative Course Patient is a 57-year-old female comes in complaining of chest pain and shortness of breath. Exam shows no acute abnormalities. She was given a breathing treatment with some improvement of her symptoms. Labs sent show no acute abnormalities, troponin is negative. She was given aspirin. She did place an chest pain center for further management of her chest pain. Diagnosis Primary Impression: Atypical chest pain Admitting Information Admitting Physician Requests: Kasandra Flores MD Aug 01, 2017 13:46
[2017-08-01] MEDS ORDERED: ACETAMINOPHEN 500 MG CPLT PO PRN (15:15)
[2017-08-01] MEDS ORDERED: NITROGLYCERIN 0.4 MG SL 25 TABS/BTL SL PRN (15:15)
[2017-08-01] MEDS ORDERED: ONDANSETRON HCL 4 MG/2 ML VIAL IV PUSH PRN (15:15)
[2017-08-01 15:37] LABS: TROPONIN I LESS THAN 0.02 NG/ML (0.02-0.05)
[2017-08-01 15:38] VITALS: O2SAT 95
--- NOTE | 2017-08-01 16:16 | HHI.HP ---
HPI Service [facility] Primary Care Physician MD Rodrigo Horne in [place] Infectious Disease (treating pt with isoniazid) Chief Complaint Couch for six months and chest pain with hard coughing History of Present Illness 57 year old morbidly obese lady with a complex history. Most pertinent is a cough for the last six months which has been evaluated by an infectious disease specialist in [place]. The patient was told she has TB and was treated with Isoniazid which she has been taking regularly. Her cough is dry, non- productive. No fever or chills. She now complains of severe 10/10 chest pain when she coughs. The pain is sharp knife like in her right lower ribs with some radiation to her low sternum. The pain is present with pressure on her chest. She also has a history of asthma, diabetes and hypertension which has not been in control. She also states that she has had a heart attack but review of records shows that she has been CATHed three times, the last by Dr. Franco due to an abnormal nuclear stress test and her coronaries were normal. She does have atrial fib and sees Dr. Rose regularly. Review of Systems Respiratory: COMPLAINS OF: See HPI Cardiovascular: COMPLAINS OF: See HPI Past Family Social History Allergies: Coded Allergies: guaifenesin (Unverified Allergy, Severe, SHAKES, 05/17/17) Past Medical History Diabetes Asthma HTN Atrial Fib chronic COPD ANXIETY DEPRESSION GERD Arthritis Hyperlipidemia Past Surgical History Umbilical hernia Appendectomy C section X3 Hysterectomy Reported Medications Reported Meds & Active Scripts Active Naproxen 500 Mg Tab 500 Mg PO BID 10 Days [place] (Hydrocodone-Acetaminophen) 5-325 mg Tab 1 Tab PO Q4H PRN Reported Warfarin 7.5 Mg Tab 7.5 Mg PO MOWEFR Warfarin 5 Mg Tab 5 Mg PO SUTUTHSA Zantac (Ranitidine HCl) 150 Mg Tab 150 Mg PO BID Klor-Con M10 (Potassium Chloride Microencaps) 10 Meq Tab 10 Meq PO DAILY Percocet (Oxycodone-Acetaminophen) 7.5-325 mg Tab 1 Tab PO Q6H PRN Nitrostat SL (Nitroglycerin) 0.4 Mg Subl 0.4 Mg SL ONCE Metoprolol Tartrate 100 Mg Tab 150 Mg PO BID Metformin (Metformin HCl) 500 Mg Tab 500 Mg PO BIDPC With meals Lisinopril 40 Mg Tab 40 Mg PO BID Furosemide 40 Mg Tab 40 Mg PO BID Calcium (Calcium Carbonate) 600 Mg Tab 600 Mg PO DAILY Hydroxyzine HCl 25 Mg Tab 25 Mg PO QID Aspirin 81 (Aspirin) 81 Mg Tabdr 81 Mg PO DAILY Norvasc (Amlodipine Besylate) 10 Mg Tab 10 Mg PO DAILY Xanax (Alprazolam) 0.5 Mg Tab 0.5 Mg PO BID PRN Ventolin Hfa 18 GM Inh (Albuterol Sulfate) 90 Mcg/Act Aer 2 Puff INH DIRECTED PRN Isoniazid daily Active Ordered Medications Current Medications Medications (Trade) Dose Ordered Sig/Chin Route Start Time Stop Time Status Last Admin (NS Flush) 2 ml UNSCH PRN IVF 08/01/17 11:15 (NS Flush) 2 ml BID IV FLUSH 08/01/17 21:00 (Tylenol) 500 mg Q4H PRN PO 08/01/17 15:15 (Zofran Inj) 4 mg Q6H PRN IV PUSH 08/01/17 15:15 (Nitrostat Sl) 0.4 mg Q5M PRN SL 08/01/17 15:15 (Aspirin) 325 mg DAILY PO 08/02/17 09:00 Family History Father living at 98 and well for age Mother at 72 from renal failure from diabetes. Had CVA but no known heart problem Social History Denies alcohol and tobacco Physical Exam Vital Signs Vital Signs Date Time Temp Pulse Resp B/P (MAP) Pulse Ox O2 Delivery O2 Flow Rate FiO2 08/01/17 09:27 98.5 80 16 147/81 (103) 95 Room Air Physical Exam GENERAL: Morbidly obese lady resting in elevated position comfortably SKIN: Warm and dry. HEAD: Atraumatic. Normocephalic. EYES: Pupils equal and round. No scleral icterus. No injection or drainage. Somewhat muddy ENT: No nasal bleeding or discharge. Mucous membranes pink and moist. Poor dentition NECK: Trachea midline. No JVD. CARDIOVASCULAR: Irregular rate with distant HS but no GRM RESPIRATORY: Right lower ribs exquisitely painful to palpation. This duplicates the pain she is complaining of. No accessory muscle use. Clear to auscultation. Breath sounds equal bilaterally. GASTROINTESTINAL: Abdomen hugely obese but soft, diffusely tender, No guarding or rebound. Hepatic and splenic margins not palpable. Multiple scars. MUSCULOSKELETAL: Extremities without clubbing, cyanosis, or edema. No obvious deformities. NEUROLOGICAL: Awake and alert. No obvious cranial nerve deficits. Motor grossly within normal limits. Five out of 5 muscle strength in the arms and legs. Normal speech. PSYCHIATRIC: Appropriate mood and affect; insight and judgment normal. Laboratory Laboratory Tests Test 08/01/17 11:35 08/01/17 14:25 White Blood Count 5.9 Red Blood Count 4.85 Hemoglobin 13.5 Hematocrit 41.4 Mean Corpuscular Volume 85.4 Mean Corpuscular Hemoglobin 27.9 Mean Corpuscular Hemoglobin Concent 32.6 Red Cell Distribution Width 15.7 Platelet Count 258 Mean Platelet Volume 7.5 Neutrophils (%) (Auto) 68.6 Lymphocytes (%) (Auto) 19.5 Monocytes (%) (Auto) 9.8 Eosinophils (%) (Auto) 1.5 Basophils (%) (Auto) 0.6 Neutrophils # (Auto) 4.0 Lymphocytes # (Auto) 1.1 Monocytes # (Auto) 0.6 Eosinophils # (Auto) 0.1 Basophils # (Auto) 0.0 CBC Comment DIFF FINAL Differential Comment Prothrombin Time 20.0 Prothromb Time International Ratio 2.0 Activated Partial Thromboplast Time 39.9 Blood Urea Nitrogen 13 Creatinine 0.99 Random Glucose 86 Calcium Level 8.9 Magnesium Level 2.0 Sodium Level 139 Potassium Level 4.0 Chloride Level 107 Carbon Dioxide Level 27.2 Anion Gap 5 Estimat Glomerular Filtration Rate 70 Total Creatine Kinase 183 167 Creatine Kinase MB LESS THAN 0.5 LESS THAN 0.5 Troponin I LESS THAN 0.02 LESS THAN 0.02 B-Type Natriuretic Peptide 25 Result Diagram: 08/01/17 1135 08/01/17 [address] SCAN DO NOT INDICATE ACTIVE TB Course Will RO and discharge to FU with PCP Repeating a known abnormal nuclear study is not indicated and she clearly can't do ETT Will have her follow up as scheduled with Dr. Franco. Caprini VTE Risk Assessment Caprini VTE Risk Assessment: Mod/High Risk (score >= 2) Caprini Risk Assessment Model Point Value = 1 Point Value = 2 Point Value = 3 Point Value = 5 Age 41-60 Minor surgery BMI > 25 kg/m2 Swollen legs Varicose veins or History of unexplained or recurrent spontaneous Oral contraceptives or hormone replacement Sepsis (< 1 month) Serious lung disease, including pneumonia (< 1 month) Abnormal pulmonary function Acute myocardial infarction Congestive heart failure (< 1 month) History of inflammatory bowel disease Medical patient at bed rest Age 61-74 Arthroscopic surgery Major open surgery (> 45 min) Laparoscopic surgery (> 45 min) Malignancy Confined to bed (> 72 hours) Immobilizing plaster cast Central venous access Age >= 75 History of VTE Family history of VTE Factor V Leiden Prothrombin [id number] Lupus anticoagulant Anticardiolipin antibodies Elevated serum homocysteine Heparin-induced thrombocytopenia Other congenital or acquired thrombophilia Stroke (< 1 month) Elective arthroplasty Hip, pelvis, or leg fracture Acute spinal cord injury (< 1 month) Prophylaxis Regimen Total Risk Factor Score Risk Level Prophylaxis Regimen 0-1 Low Early ambulation 2 Moderate Order ONE of the following: *Sequential Compression Device (SCD) *Heparin 5000 units SQ BID 3-4 Higher Order ONE of the following medications: *Heparin 5000 units SQ TID *Enoxaparin/Lovenox 40 mg SQ daily (WT < 150 kg, CrCl > 30 mL/min) *Enoxaparin/Lovenox 30 mg SQ daily (WT < 150 kg, CrCl > 10-29 mL/min) *Enoxaparin/Lovenox 30 mg SQ BID (WT < 150 kg, CrCl > 30 mL/min) AND/OR *Sequential Compression Device (SCD) 5 or more Highest Order ONE of the following medications: *Heparin 5000 units SQ TID (Preferred with Epidurals) *Enoxaparin/Lovenox 40 mg SQ daily (WT < 150 kg, CrCl > 30 mL/min) *Enoxaparin/Lovenox 30 mg SQ daily (WT < 150 kg, CrCl > 10-29 mL/min) *Enoxaparin/Lovenox 30 mg SQ BID (WT < 150 kg, CrCl > 30 mL/min) AND *Sequential Compression Device (SCD) Assessment and Plan Problem List: (1) Diabetes 1.5, managed as type 2 ICD Codes: E10.9 - Type 1 diabetes mellitus without complications Status: Chronic (2) Asthma ICD Codes: J45.909 - Unspecified asthma, uncomplicated Status: Acute (3) TB (pulmonary tuberculosis) ICD Codes: A15.0 - Tuberculosis of lung Status: Chronic (4) HTN (hypertension) ICD Codes: I10 - Essential (primary) hypertension Status: Acute (5) Obesities, morbid ICD Codes: E66.01 - Morbid (severe) obesity due to excess calories Status: Chronic (6) Sleep apnea ICD Codes: G47.30 - Sleep apnea, unspecified Status: Chronic (7) Diverticul disease small and large intestine, no perforati or abscess ICD Codes: K57.50 - Diverticulosis of both small and large intestine without perforation or abscess without bleeding Status: Chronic (8) Hyperlipidemia associated with type 2 diabetes mellitus ICD Codes: E11.69 - Type 2 diabetes mellitus with other specified complication ; E78.5 - Hyperlipidemia, unspecified Status: Chronic (9) Atrial fibrillation ICD Codes: I48.91 - Unspecified atrial fibrillation Status: Chronic (10) Anxiety and depression ICD Codes: F41.8 - Other specified anxiety disorders Status: Chronic (11) Atypical chest pain ICD Codes: R07.89 - Atypical chest pain Status: Acute (12) Diabetes type 2, controlled ICD Codes: E11.9 - Type 2 diabetes mellitus without complications Status: Chronic (13) Costochondral chest pain ICD Codes: R07.1 - Chest pain on breathing Assessment and Plan Patients current Chest Pain is clearly costochondral probably secondary to protracted cough. She has three prior CATH showing no coronary artery disease and has a known abnormal nuclear stress test. She cannot walk for ETT and is not candidate for nuc study so once she is RO for ACS will discharge back to PCP. She needs continuing care for her ? TB and management of cough. Her At Fib is managed by Dr. Franco who apparently knows her well. Nam Neely MD Aug 01, 2017 16:16
--- NOTE | 2017-08-01 18:23 | HHI.DCPOC ---
Discharge Care Plan Diagnosis: (1) Costochondral chest pain Goals to Promote Your Health * To prevent worsening of your condition and complications * To maintain your health at the optimal level Directions to Meet Your Goals Take your medications as prescribed Follow your dietary instruction Follow activity as directed Keep your appointments as scheduled Take your immunizations and boosters as scheduled If your symptoms worsen call your PCP, if no PCP go to Urgent Care Center or Emergency Room Smoking is Dangerous to Your Health. Avoid second hand smoke Call the 24-hour hour crisis hotline for domestic abuse at Keena [place]oya Aug 01, 2017 18:23
[2017-08-01 18:34] LABS: TROPONIN I LESS THAN 0.02 NG/ML (0.02-0.05)
[2017-08-01] MEDS ORDERED: SODIUM CHLORIDE 0.9% FLUSH 10 ML FLUSH IV FLUSH SCH (21:00)
[2017-08-02] MEDS ORDERED: ASPIRIN 325 MG TAB PO SCH (09:00)
--- NOTE | 2017-08-02 15:17 | EKG ---
Date Performed: 08/01/2017 Time Performed: 09:33:38 PTAGE: 57 years EKG: Sinus rhythm POSSIBLE LEFT ATRIAL ENLARGEMENT Since previous tracing, no significant change noted BORDERLINE ECG PREVIOUS TRACING : 07/01/2015 13.03 DOCTOR: Memo López Interpretating Date/Time 08/02/2017 15:16:12
--- NOTE | 2017-08-02 15:20 | EKG ---
Date Performed: 08/01/2017 Time Performed: 17:28:58 PTAGE: 57 years EKG: Sinus rhythm POSSIBLE LEFT ATRIAL ENLARGEMENT NONSPECIFIC T-WAVE ABNORMALITY BORDERLINE ECG PREVIOUS TRACING : 08/01/2017 14.24 DOCTOR: Memo López Interpretating Date/Time 08/02/2017 15:19:22
--- NOTE | 2017-08-02 15:23 | EKG ---
Date Performed: 08/01/2017 Time Performed: 14:24:27 PTAGE: 57 years EKG: Sinus rhythm POSSIBLE LEFT ATRIAL ENLARGEMENT BORDERLINE ECG PREVIOUS TRACING : 08/01/2017 09.33 Since previous tracing, no significant change noted DOCTOR: Memo López Interpretating Date/Time 08/02/2017 15:22:47
== END 2017-08-01 20:02 | disposition home or self-care (01) ==
LOC: NEPE 09:11 → NEDA 13:55
PROVIDERS: ADMIT Internal Medicine Interventional Cardiology; ATTEND Internal Medicine Interventional Cardiology
DX: R07.1 Chest pain on breathing (principal); I10 Essential (primary) hypertension; I25.10 Atherosclerotic heart disease of native coronary artery without angina pectoris; E78.5 Hyperlipidemia, unspecified; A15.0 Tuberculosis of lung; E10.69 Type 1 diabetes mellitus with other specified complication; K57.50 Diverticulosis of both small and large intestine without perforation or abscess without bleeding; K21.9 Gastro-esophageal reflux disease without esophagitis; I48.2 Chronic atrial fibrillation; J44.9 Chronic obstructive pulmonary disease, unspecified; I25.2 Old myocardial infarction; F41.8 Other specified anxiety disorders; G47.30 Sleep apnea, unspecified; E66.01 Morbid (severe) obesity due to excess calories; M17.0 Bilateral primary osteoarthritis of knee; Z79.01 Long term (current) use of anticoagulants; Z79.4 Long term (current) use of insulin; Z79.82 Long term (current) use of aspirin; Z90.710 Acquired absence of both cervix and uterus; Z68.43 Body mass index [BMI] 50.0-59.9, adult
CPT/HCPCS: 71045; 71275; 80048; 82550; 82552; 83735; 83880; 84484; 85025; 85610; 85730; 93005; 94640; 94664; 96374; 99285; G0378; J2930; Q9967

== ENCOUNTER 2017-08-26 13:26 | Emergency (ER) | payer MEDICARE, MEDICAID ==
[~2017-08-26] VITALS: Ht 152.4 cm; Wt 133.2 kg
[~2017-08-26 13:26] MED LIST changes: -AUGM875T3 PO; -BUTA1TAB30 PO; -CIPR-9 PO; -METR-1 PO
[2017-08-26 13:29] VITALS: BP 168/79; PULSE 87; RESP 16; TEMP 98; O2SAT 97
[2017-08-26 15:43] LABS: BACTERIA, URINE RARE /hpf; BILIRUBIN, URINE NEG (NEG); BLOOD, URINE NEG (NEG); GLUCOSE,URINE NEG (NEG); KETONE, URINE NEG (NEG); NITRITE,URINE NEG (NEG); PH, URINE 6.5 (5.0-8.5); SQUAMOUS EPITHELIAL CELL URINE 1 /hpf (0-5); URINE COLOR YELLOW (YELLW/STRAW); URINE LEUKOCYTE ESTERASE NEG (NEG)
[2017-08-26 15:48] LABS: INTERNATIONAL NORMALIZED RATIO 2.6 RATIO; PROTHROMBIN TIME - PATIENT 26.6 SEC (9.8-11.6)
[2017-08-26 15:51] LABS: AUTOMATED NEUTROPHIL # 3.4 TH/MM3 (1.8-7.7); BASOPHIL % 0.6 % (0.0-2.0); EOSINOPHIL # 0.2 TH/MM3 (0-0.4); EOSINOPHIL % 2.9 % (0.0-4.0); HEMATOCRIT 41.4 % (35.0-46.0); HEMOGLOBIN 13.9 GM/DL (11.6-15.3); LYMPH % 37.6 % (9.0-44.0); LYMPHOCYTE # 2.8 TH/MM3 (1.0-4.8); MEAN CELL VOLUME 85.3 FL (80.0-100.0); MEAN CORPUSCULAR HEMOGLOBIN 28.6 PG (27.0-34.0); MEAN CORPUSCULAR HGB CONC 33.5 % (32.0-36.0); MEAN PLATELET VOLUME 7.5 FL (7.0-11.0); MONO % 12.2 % (0.0-8.0); MONOCYTE # 0.9 TH/MM3 (0-0.9); NEUT % 46.7 % (16.0-70.0); PLATELET COUNT 283 TH/MM3 (150-450); RED BLOOD COUNT 4.85 MIL/MM3 (4.00-5.30); RED CELL DISTRIBUTION WIDTH 15.6 % (11.6-17.2); WHITE BLOOD COUNT 7.4 TH/MM3 (4.0-11.0)
[2017-08-26 15:56] LABS: ALBUMIN 3.6 GM/DL (3.4-5.0); ALT (GPT) 27 U/L (10-53); AST (GOT) 16 U/L (15-37); BICARBONATE 29.8 MEQ/L (21.0-32.0); BLOOD UREA NITROGEN 11 MG/DL (7-18); CALCIUM 9.1 MG/DL (8.5-10.1); CHLORIDE 104 MEQ/L (98-107); CREATININE 0.86 MG/DL (0.50-1.00); GLOMERULAR FILTRATION RATE 82 ML/MIN (>89); GLUCOSE,RANDOM 75 MG/DL (74-106); SODIUM (NA) 140 MEQ/L (136-145)
[2017-08-26 15:58] LABS: ALKALINE PHOSPHATASE 78 U/L (45-117); TOTAL BILIRUBIN ADULT 0.3 MG/DL (0.2-1.0); TOTAL PROTEIN 8.7 GM/DL (6.4-8.2)
[2017-08-26] MEDS ORDERED: DIFL150T PO (16:59)
[2017-08-26] MEDS ORDERED: METR-1 PO (16:59)
--- NOTE | 2017-08-26 17:00 | PD ---
HPI Chief Complaint: Abdominal Pain Time Seen by Provider: 15:56 Travel History International Travel<30 days: No Contact w/Intl Traveler<30days: No Traveled to known affect area: No History of Present Illness HPI This is a 57-year-old female who presented to the ER for lower abdominal pain, vaginal itchiness, vaginal discharge that has been going on for the last 5 days. Patient denies any fever or chills. She denies any symptoms of UTI no burning urination or frequency. Patient is not sexually active currently, she had hysterectomy done several years ago. Patient denies any nausea vomiting or diarrhea. Abdominal pain is located in the right lower quadrant, pain is 5 out of 10, dull, no radiation. Patient had her appendix removed several years ago. Vaginal discharge is white greenish color, malodorous, no blood. Patient also has a history of hemorrhoids but she is not in any medications for it. PFSH Past Medical History Hx Anticoagulant Therapy: Yes (COUMADIN) Arthritis: Yes Asthma: Yes Atrial Fibrillation: Yes Autoimmune Disease: No Blood Disorders: No Anxiety: Yes Depression: Yes Heart Rhythm Problems: Yes (A-FIB, TAKES COUMADIN AND ASPIRIN) Cancer: No Cardiac Catheterization: Yes (X 2 IN 2005 F/B DR PAUL) Cardiovascular Problems: Yes High Cholesterol: Yes Chemotherapy: No Chest Pain: Yes Congestive Heart Failure: No COPD: Yes Coronary Artery Disease: Yes Diabetes: Yes Patient Takes Glucophage: Yes Diminished Hearing: No Diverticulitis: Yes Endocrine: Yes Gastrointestinal Disorders: Yes GERD: Yes Genitourinary: No Headaches: Yes Hypertension: Yes Immune Disorder: No Neurologic: No Psychiatric: Yes Reproductive: No Respiratory: Yes Myocardial Infarction: Yes Radiation Therapy: No Seizures: No Sleep Apnea: Yes (USES CPAP AT HOME) Thyroid Disease: No Tetanus Vaccination: Unknown Influenza Vaccination: No PNEUMOCCOCAL Vaccine (Year): NONE ?: Not Menopausal: Yes : 3 Para: 3 Miscarriage: 0 : 0 Past Surgical History Abdominal Surgery: Yes (CYST AROUND UMBILICUS REMOVED) AICD: No Appendectomy: Yes Arteriovenous Shunt: No Body Medical Devices: C PAP AT NIGHT WITH 2% OXYGEN Cardiac Surgery: Yes (CARDIAC CATH OCTOBER 2005) Section: Yes (X3) Cholecystectomy: Yes Ear Surgery: No Endocrine Surgery: No Eye Surgery: No Genitourinary Surgery: No Gynecologic Surgery: Yes (JOSE FRANCISCO / X3) Hysterectomy: Yes Neurologic Surgery: No Oral Surgery: No Thoracic Surgery: No Other Surgery: Yes (abd cyst) Family History Family Myocardial Infarction: Yes Social History Alcohol Use: No Tobacco Use: No Substance Use: No Allergies-Medications (Allergen,Severity, Reaction): Coded Allergies: guaifenesin (Unverified Allergy, Severe, SHAKES, 08/26/17) Reported Meds & Prescriptions Reported Meds & Active Scripts Active Naproxen 500 Mg Tab 500 Mg PO BID 10 Days [place] (Hydrocodone-Acetaminophen) 5-325 mg Tab 1 Tab PO Q4H PRN Reported Warfarin 7.5 Mg Tab 7.5 Mg PO MOWEFR Warfarin 5 Mg Tab 5 Mg PO SUTUTHSA Zantac (Ranitidine HCl) 150 Mg Tab 150 Mg PO BID Klor-Con M10 (Potassium Chloride Microencaps) 10 Meq Tab 10 Meq PO DAILY Percocet (Oxycodone-Acetaminophen) 7.5-325 mg Tab 1 Tab PO Q6H PRN Nitrostat SL (Nitroglycerin) 0.4 Mg Subl 0.4 Mg SL ONCE Metoprolol Tartrate 100 Mg Tab 150 Mg PO BID Metformin (Metformin HCl) 500 Mg Tab 500 Mg PO BIDPC With meals Lisinopril 40 Mg Tab 40 Mg PO BID Furosemide 40 Mg Tab 40 Mg PO BID Calcium (Calcium Carbonate) 600 Mg Tab 600 Mg PO DAILY Hydroxyzine HCl 25 Mg Tab 25 Mg PO QID Aspirin 81 (Aspirin) 81 Mg Tabdr 81 Mg PO DAILY Norvasc (Amlodipine Besylate) 10 Mg Tab 10 Mg PO DAILY Xanax (Alprazolam) 0.5 Mg Tab 0.5 Mg PO BID PRN Ventolin Hfa 18 GM Inh (Albuterol Sulfate) 90 Mcg/Act Aer 2 Puff INH DIRECTED PRN Review of Systems General / Constitutional: No: Fever HENT: No: Headaches Cardiovascular: No: Chest Pain or Discomfort Gastrointestinal: Positive: Abdominal Pain, No: Nausea, Vomiting, Diarrhea Genitourinary: Positive: Pelvic Pain, Discharge, No: Urgency, Frequency, Dysuria, Nocturia Physical Exam Narrative GENERAL: No acute distress SKIN: Focused skin assessment warm/dry. HEAD: Atraumatic. Normocephalic. EYES: Pupils equal and round. No scleral icterus. No injection or drainage. ENT: No nasal bleeding or discharge. Mucous membranes pink and moist. NECK: Trachea midline. CARDIOVASCULAR: Regular rate and rhythm. No murmur appreciated. RESPIRATORY: No accessory muscle use. Clear to auscultation. Breath sounds equal bilaterally. GASTROINTESTINAL: Abdomen soft, non-tender, nondistended. Hepatic and splenic margins not palpable. MUSCULOSKELETAL: No obvious deformities. No clubbing. No cyanosis. No edema. Genitourinary: Greenish white discharge, no cervical erythema, no cervical motion tenderness PSYCHIATRIC: Appropriate mood and affect; insight and judgment normal. Data Data Last Documented VS Vital Signs Date Time Temp Pulse Resp B/P (MAP) Pulse Ox O2 Delivery O2 Flow Rate FiO2 08/26/17 13:29 98.0 87 16 168/79 (108) 97 Orders Orders Complete Blood Count With Diff (08/26/17 14:00) Comprehensive Metabolic Panel (08/26/17 14:00) Lipase (08/26/17 14:00) Prothrombin Time / Inr (Pt) (08/26/17 14:00) Act Partial Throm Time (Ptt) (08/26/17 14:00) Urinalysis - C+S If Indicated (08/26/17 14:00) Wet Prep Profile (08/26/17 16:17) Labs Laboratory Tests Test 08/26/17 15:05 08/26/17 15:10 Urine Color YELLOW Urine Turbidity CLEAR Urine pH 6.5 Urine Specific [place] 1.009 Urine Protein NEG mg/dL Urine Glucose (UA) NEG mg/dL Urine Ketones NEG mg/dL Urine Occult Blood NEG Urine Nitrite NEG Urine Bilirubin NEG Urine Urobilinogen LESS THAN 2.0 MG/DL Urine Leukocyte Esterase NEG Urine RBC LESS THAN 1 /hpf Urine WBC LESS THAN 1 /hpf Urine Squamous Epithelial Cells 1 /hpf Urine Bacteria RARE /hpf Microscopic Urinalysis Comment CULT NOT INDICATED White Blood Count 7.4 TH/MM3 Red Blood Count 4.85 MIL/MM3 Hemoglobin 13.9 GM/DL Hematocrit 41.4 % Mean Corpuscular Volume 85.3 FL Mean Corpuscular Hemoglobin 28.6 PG Mean Corpuscular Hemoglobin Concent 33.5 % Red Cell Distribution Width 15.6 % Platelet Count 283 TH/MM3 Mean Platelet Volume 7.5 FL Neutrophils (%) (Auto) 46.7 % Lymphocytes (%) (Auto) 37.6 % Monocytes (%) (Auto) 12.2 % Eosinophils (%) (Auto) 2.9 % Basophils (%) (Auto) 0.6 % Neutrophils # (Auto) 3.4 TH/MM3 Lymphocytes # (Auto) 2.8 TH/MM3 Monocytes # (Auto) 0.9 TH/MM3 Eosinophils # (Auto) 0.2 TH/MM3 Basophils # (Auto) 0.0 TH/MM3 CBC Comment DIFF FINAL Differential Comment Prothrombin Time 26.6 SEC Prothromb Time International Ratio 2.6 RATIO Activated Partial Thromboplast Time 44.9 SEC Blood Urea Nitrogen 11 MG/DL Creatinine 0.86 MG/DL Random Glucose 75 MG/DL Total Protein 8.7 GM/DL Albumin 3.6 GM/DL Calcium Level 9.1 MG/DL Alkaline Phosphatase 78 U/L Aspartate Amino Transf (AST/SGOT) 16 U/L Alanine Aminotransferase (ALT/SGPT) 27 U/L Total Bilirubin 0.3 MG/DL Sodium Level 140 MEQ/L Potassium Level 3.5 MEQ/L Chloride Level 104 MEQ/L Carbon Dioxide Level 29.8 MEQ/L Anion Gap 6 MEQ/L Estimat Glomerular Filtration Rate 82 ML/MIN Lipase 208 U/L [facility] Medical Decision Making Medical Screen Exam Complete: Yes Emergency Medical Condition: Yes Medical Record Reviewed: Yes Differential Diagnosis Bacterial vaginosis, Chlamydia gonorrhea, hemorrhoids Narrative Course This is a 57-year-old female who presents to the ER with vaginal discharge lower abdominal pain that has been going on for the last 5 days. Upon pelvic examination there is white green discharge consistent with bacterial vaginosis. Labs are within normal limits no UTI. Patient will be discharged on Flagyl and to follow-up with her primary care physician. Diagnosis Primary Impression: Bacterial vaginosis Patient Instructions: General Instructions Scripts Fluconazole (Diflucan) 150 Mg Tab 150 MG PO ONCE for Infection, #1 TAB 0 Refills Prov: Chase Patten MD 08/26/17 Metronidazole (Flagyl) 500 Mg Tab 500 MG PO BID for Infection for 7 Days, #14 TAB 0 Refills Prov: Chase Patten MD 08/26/17 Disposition: 01 DISCHARGE HOME Condition: Stable Chase Patten MD Aug 26, 2017 17:00
[2017-08-26] MEDS ORDERED: IBUP-232 PO (17:07)
== END 2017-08-26 17:20 | disposition home or self-care (01) ==
LOC: NEPD 13:26
DX: N76.0 Acute vaginitis (principal); B96.89 Other specified bacterial agents as the cause of diseases classified elsewhere; E11.9 Type 2 diabetes mellitus without complications; E78.00 Pure hypercholesterolemia, unspecified; I25.10 Atherosclerotic heart disease of native coronary artery without angina pectoris; I48.91 Unspecified atrial fibrillation; I10 Essential (primary) hypertension; I25.2 Old myocardial infarction; Z79.01 Long term (current) use of anticoagulants; Z79.82 Long term (current) use of aspirin; Z79.84 Long term (current) use of oral hypoglycemic drugs
CPT/HCPCS: 80053; 81001; 83690; 85025; 85610; 85730; 87210; 87491; 87591; 99284

== ENCOUNTER 2017-11-02 10:15 | Emergency (ER) | payer MEDICARE, MEDICAID ==
[~2017-11-02] VITALS: Ht 152.4 cm; Wt 132.0 kg
[~2017-11-02 10:15] MED LIST changes: +DIFL150T PO; +IBUP-232 PO; +METR-1 PO
[2017-11-02 10:20] VITALS: BP 137/61; PULSE 74; RESP 20; TEMP 98.6; O2SAT 98
[2017-11-02] MEDS ORDERED: SODIUM CHLOR 0.9% 1000 ML INJ 1,000 ML IV SCH (10:32)
--- NOTE | 2017-11-02 10:35 | PD ---
HPI Chief Complaint: Abdominal Pain Time Seen by Provider: 10:32 Travel History International Travel<30 days: No Contact w/Intl Traveler<30days: No Traveled to known affect area: No History of Present Illness HPI Patient is a previous history of diverticulitis, and this feels very much like her previous flareups of diverticulitis. Onset was about 2 days ago, bloating and pressure pain to left lower suprapubic and right lower quadrant regions, 5 out of 10, nonradiating. No alleviating or aggravating factors. No associated factors such as fever, flank pain, hematuria, Past medical history significant for guaifenesin Past medical history significant for cardiac cath, on Coumadin hypercholesterolemia atrial fibrillation hypertension on Coumadin for A. fib, COPD, diverticulitis, appendectomy cholecystectomy GERD, total hysterectomy history of diabetes, history of depression, history of anxiety, PFSH Past Medical History Hx Anticoagulant Therapy: Yes (COUMADIN) Arthritis: Yes Asthma: Yes Atrial Fibrillation: Yes Autoimmune Disease: No Blood Disorders: No Anxiety: Yes Depression: Yes Heart Rhythm Problems: Yes (A-FIB, TAKES COUMADIN AND ASPIRIN) Cancer: No Cardiac Catheterization: Yes (X 2 IN 2005 F/B DR PAUL) Cardiovascular Problems: Yes High Cholesterol: Yes Chemotherapy: No Chest Pain: Yes Congestive Heart Failure: No COPD: Yes Coronary Artery Disease: Yes Diabetes: Yes Diminished Hearing: No Diverticulitis: Yes Endocrine: Yes Gastrointestinal Disorders: Yes GERD: Yes Genitourinary: No Headaches: Yes Hypertension: Yes Immune Disorder: No Neurologic: No Psychiatric: Yes Reproductive: No Respiratory: Yes Myocardial Infarction: Yes Radiation Therapy: No Seizures: No Sleep Apnea: Yes (USES CPAP AT HOME) Thyroid Disease: No PNEUMOCCOCAL Vaccine (Year): NONE Menopausal: Yes : 3 Para: 3 Miscarriage: 0 : 0 Past Surgical History Abdominal Surgery: Yes (CYST AROUND UMBILICUS REMOVED) AICD: No Appendectomy: Yes Arteriovenous Shunt: No Body Medical Devices: C PAP AT NIGHT WITH 2% OXYGEN Cardiac Surgery: Yes (CARDIAC CATH OCTOBER 2005) Section: Yes (X3) Cholecystectomy: Yes Ear Surgery: No Endocrine Surgery: No Eye Surgery: No Genitourinary Surgery: No Gynecologic Surgery: Yes (JOSE FRANCISCO / X3) Hysterectomy: Yes Neurologic Surgery: No Oral Surgery: No Thoracic Surgery: No Other Surgery: Yes (abd cyst) Social History Alcohol Use: No Tobacco Use: No Substance Use: No Allergies-Medications (Allergen,Severity, Reaction): Coded Allergies: guaifenesin (Unverified Allergy, Severe, SHAKES, 11/02/17) Reported Meds & Prescriptions Reported Meds & Active Scripts Active Ibuprofen 600 Mg Tab 600 Mg PO Q8H PRN Diflucan (Fluconazole) 150 Mg Tab 150 Mg PO ONCE Flagyl (Metronidazole) 500 Mg Tab 500 Mg PO BID 7 Days Naproxen 500 Mg Tab 500 Mg PO BID 10 Days Arp (Hydrocodone-Acetaminophen) 5-325 mg Tab 1 Tab PO Q4H PRN Reported Warfarin 7.5 Mg Tab 7.5 Mg PO MOWEFR Warfarin 5 Mg Tab 5 Mg PO SUTUTHSA Zantac (Ranitidine HCl) 150 Mg Tab 150 Mg PO BID Klor-Con M10 (Potassium Chloride Microencaps) 10 Meq Tab 10 Meq PO DAILY Percocet (Oxycodone-Acetaminophen) 7.5-325 mg Tab 1 Tab PO Q6H PRN Nitrostat SL (Nitroglycerin) 0.4 Mg Subl 0.4 Mg SL ONCE Metoprolol Tartrate 100 Mg Tab 150 Mg PO BID Metformin (Metformin HCl) 500 Mg Tab 500 Mg PO BIDPC With meals Lisinopril 40 Mg Tab 40 Mg PO BID Furosemide 40 Mg Tab 40 Mg PO BID Calcium (Calcium Carbonate) 600 Mg Tab 600 Mg PO DAILY Hydroxyzine HCl 25 Mg Tab 25 Mg PO QID Aspirin 81 (Aspirin) 81 Mg Tabdr 81 Mg PO DAILY Norvasc (Amlodipine Besylate) 10 Mg Tab 10 Mg PO DAILY Xanax (Alprazolam) 0.5 Mg Tab 0.5 Mg PO BID PRN Ventolin Hfa 18 GM Inh (Albuterol Sulfate) 90 Mcg/Act Aer 2 Puff INH DIRECTED PRN Review of Systems General / Constitutional: No: Fever Eyes: No: Visual changes HENT: No: Headaches Cardiovascular: No: Chest Pain or Discomfort Respiratory: No: Shortness of Breath Gastrointestinal: Positive: Abdominal Pain Genitourinary: No: Dysuria Musculoskeletal: No: Pain Skin: No Rash Neurologic: No: Weakness Psychiatric: No: Depression Endocrine: No: Polydipsia Hematologic/Lymphatic: No: Easy Bruising Physical Exam Narrative GENERAL: SKIN: Warm and dry. HEAD: Atraumatic. Normocephalic. EYES: Pupils equal and round. No scleral icterus. No injection or drainage. ENT: No nasal bleeding or discharge. Mucous membranes pink and moist. NECK: Trachea midline. No JVD. CARDIOVASCULAR: Regular rate and rhythm. RESPIRATORY: No accessory muscle use. Clear to auscultation. Breath sounds equal bilaterally. GASTROINTESTINAL: Abdomen soft, non-tender, nondistended. Minimal tenderness to palpation over the lower abdomen suprapubic as well as left lower MUSCULOSKELETAL: Extremities without clubbing, cyanosis, or edema. No obvious deformities. NEUROLOGICAL: Awake and alert. No obvious cranial nerve deficits. Motor grossly within normal limits. Five out of 5 muscle strength in the arms and legs. Normal speech. PSYCHIATRIC: Appropriate mood and affect; insight and judgment normal. Data Data Last Documented VS Vital Signs Date Time Temp Pulse Resp B/P (MAP) Pulse Ox O2 Delivery O2 Flow Rate FiO2 11/02/17 12:10 61 18 121/59 (79) 94 Room Air 11/02/17 10:20 98.6 Orders Orders Complete Blood Count With Diff (11/02/17 10:32) Comprehensive Metabolic Panel (11/02/17 10:32) Lipase (11/02/17 10:32) Prothrombin Time / Inr (Pt) (11/02/17 10:32) Act Partial Throm Time (Ptt) (11/02/17 10:32) Urinalysis - C+S If Indicated (11/02/17 10:32) Ct Abd/Pel W/O Iv Contrast (11/02/17 10:32) Iv Access Insert/Monitor (11/02/17 10:32) Ecg Monitoring (11/02/17 10:32) Oximetry (11/02/17 10:32) NPO (11/02/17 10:32) Morphine Inj (Morphine Inj) (11/02/17 10:45) Ondansetron Inj (Zofran Inj) (11/02/17 10:45) Sodium Chlor 0.9% 1000 Ml Inj (Ns 1000 M (11/02/17 10:32) Sodium Chloride 0.9% Flush (Ns Flush) (11/02/17 10:45) Urine Culture (11/02/17 10:51) Labs Laboratory Tests Test 11/02/17 10:51 White Blood Count 8.3 TH/MM3 Red Blood Count 4.67 MIL/MM3 Hemoglobin 13.2 GM/DL Hematocrit 39.6 % Mean Corpuscular Volume 84.8 FL Mean Corpuscular Hemoglobin 28.3 PG Mean Corpuscular Hemoglobin Concent 33.3 % Red Cell Distribution Width 15.2 % Platelet Count 269 TH/MM3 Mean Platelet Volume 7.6 FL Neutrophils (%) (Auto) 66.5 % Lymphocytes (%) (Auto) 20.7 % Monocytes (%) (Auto) 9.6 % Eosinophils (%) (Auto) 2.6 % Basophils (%) (Auto) 0.6 % Neutrophils # (Auto) 5.5 TH/MM3 Lymphocytes # (Auto) 1.7 TH/MM3 Monocytes # (Auto) 0.8 TH/MM3 Eosinophils # (Auto) 0.2 TH/MM3 Basophils # (Auto) 0.1 TH/MM3 CBC Comment DIFF FINAL Differential Comment Prothrombin Time 18.3 SEC Prothromb Time International Ratio 1.8 RATIO Activated Partial Thromboplast Time 39.0 SEC Urine Color YELLOW Urine Turbidity HAZY Urine pH 6.0 Urine Specific [place] 1.018 Urine Protein TRACE mg/dL Urine Glucose (UA) NEG mg/dL Urine Ketones NEG mg/dL Urine Occult Blood NEG Urine Nitrite NEG Urine Bilirubin NEG Urine Urobilinogen LESS THAN 2.0 MG/DL Urine Leukocyte Esterase NEG Urine RBC LESS THAN 1 /hpf Urine WBC 3 /hpf Urine Squamous Epithelial Cells 13 /hpf Urine Bacteria MANY /hpf Urine Mucus FEW /lpf Microscopic Urinalysis Comment CULTURE INDICATED Blood Urea Nitrogen 16 MG/DL Creatinine 1.01 MG/DL Random Glucose 147 MG/DL Total Protein 8.0 GM/DL Albumin 3.2 GM/DL Calcium Level 8.4 MG/DL Alkaline Phosphatase 71 U/L Aspartate Amino Transf (AST/SGOT) 18 U/L Alanine Aminotransferase (ALT/SGPT) 27 U/L Total Bilirubin 0.4 MG/DL Sodium Level 140 MEQ/L Potassium Level 4.0 MEQ/L Chloride Level 105 MEQ/L Carbon Dioxide Level 30.0 MEQ/L Anion Gap 5 MEQ/L Estimat Glomerular Filtration Rate 68 ML/MIN Lipase 158 U/L [facility] Medical Decision Making Medical Screen Exam Complete: Yes Emergency Medical Condition: Yes Medical Record Reviewed: Yes Differential Diagnosis Diverticulitis versus colitis versus constipation Narrative Course CT abdomen and pelvis was not performed because the patient refused to get it done. I advised patient that due to the limitations of not having a CT, the patient will have to sign AGAINST MEDICAL ADVICE. I will go ahead and provide the patient with antibiotic Cipro and Flagyl and advised the patient to return [place] should her symptoms return or worsen AMA: The risks of leaving against medical advice without further evaluation treatment were discussed with the patient. These risks include cardiac dysfunction, cardiac dysrhythmia, possible heart attack, possible stroke or . The patient indicated understanding of these risks and appeared to have the capacity to make this decision. Diagnosis Primary Impression: UTI (urinary tract infection) Qualified Codes: N30.00 - Acute cystitis without hematuria Patient Instructions: General Instructions Scripts Tramadol (Ultram) 50 Mg Tab 50 MG PO Q8H Y for PAIN, #14 TAB 0 Refills Prov: William Wiggins MD 11/02/17 Metronidazole (Flagyl) 500 Mg Tab 500 MG PO TID for Infection for 7 Days, #21 TAB 0 Refills Prov: William Wiggins MD 11/02/17 Ciprofloxacin (Cipro) 500 Mg Tab 500 MG PO BID for Infection for 5 Days, #10 TAB 0 Refills Prov: William Wiggins MD 11/02/17 Disposition: 07 AGAINST MEDICAL ADVICE Condition: Stable William Wiggins MD Nov 02, 2017 10:35
[2017-11-02] MEDS ORDERED: MORPHINE SULFATE 4 MG/ML INJ IV PUSH ONE (10:45)
[2017-11-02] MEDS ORDERED: ONDANSETRON HCL 4 MG/2 ML VIAL IVP ONE (10:45)
[2017-11-02] MEDS ORDERED: SODIUM CHLORIDE 0.9% FLUSH 10 ML FLUSH IV FLUSH PRN (10:45)
[2017-11-02 11:19] LABS: AUTOMATED NEUTROPHIL # 5.5 TH/MM3 (1.8-7.7); BASOPHIL # 0.1 TH/MM3 (0-0.2); BASOPHIL % 0.6 % (0.0-2.0); EOSINOPHIL # 0.2 TH/MM3 (0-0.4); EOSINOPHIL % 2.6 % (0.0-4.0); HEMATOCRIT 39.6 % (35.0-46.0); HEMOGLOBIN 13.2 GM/DL (11.6-15.3); LYMPH % 20.7 % (9.0-44.0); LYMPHOCYTE # 1.7 TH/MM3 (1.0-4.8); MEAN CELL VOLUME 84.8 FL (80.0-100.0); MEAN CORPUSCULAR HEMOGLOBIN 28.3 PG (27.0-34.0); MEAN CORPUSCULAR HGB CONC 33.3 % (32.0-36.0); MEAN PLATELET VOLUME 7.6 FL (7.0-11.0); MONO % 9.6 % (0.0-8.0); MONOCYTE # 0.8 TH/MM3 (0-0.9); NEUT % 66.5 % (16.0-70.0); PLATELET COUNT 269 TH/MM3 (150-450); RED BLOOD COUNT 4.67 MIL/MM3 (4.00-5.30); RED CELL DISTRIBUTION WIDTH 15.2 % (11.6-17.2); WHITE BLOOD COUNT 8.3 TH/MM3 (4.0-11.0)
[2017-11-02 11:22] LABS: BACTERIA, URINE MANY /hpf; BILIRUBIN, URINE NEG (NEG); BLOOD, URINE NEG (NEG); GLUCOSE,URINE NEG (NEG); KETONE, URINE NEG (NEG); MUCUS URINE FEW /lpf (OCC); NITRITE,URINE NEG (NEG); SQUAMOUS EPITHELIAL CELL URINE 13 /hpf (0-5); URINE COLOR YELLOW (YELLW/STRAW); URINE LEUKOCYTE ESTERASE NEG (NEG)
[2017-11-02 11:26] LABS: INTERNATIONAL NORMALIZED RATIO 1.8 RATIO; PROTHROMBIN TIME - PATIENT 18.3 SEC (9.8-11.6)
[2017-11-02 11:41] LABS: ALBUMIN 3.2 GM/DL (3.4-5.0); ALKALINE PHOSPHATASE 71 U/L (45-117); ALT (GPT) 27 U/L (10-53); AST (GOT) 18 U/L (15-37); BLOOD UREA NITROGEN 16 MG/DL (7-18); CALCIUM 8.4 MG/DL (8.5-10.1); CHLORIDE 105 MEQ/L (98-107); CREATININE 1.01 MG/DL (0.50-1.00); GLOMERULAR FILTRATION RATE 68 ML/MIN (>89); GLUCOSE,RANDOM 147 MG/DL (74-106); SODIUM (NA) 140 MEQ/L (136-145); TOTAL BILIRUBIN ADULT 0.4 MG/DL (0.2-1.0)
[2017-11-02 12:10] VITALS: BP 121/59; PULSE 61; RESP 18; O2SAT 94
[2017-11-02] MEDS ORDERED: CIPR-9 PO (12:29)
[2017-11-02] MEDS ORDERED: TRAM50 PO (12:29)
[2017-11-02] MEDS ORDERED: METR-1 PO (12:29)
[2017-11-02] MEDS ORDERED: KETOROLAC TROMETHAMINE 30 MG/ML (IVP) VIAL IV PUSH ONE (12:30)
== END 2017-11-02 13:14 | disposition left against medical advice (07) ==
LOC: NEPD 10:15
DX: N30.00 Acute cystitis without hematuria (principal)
CPT/HCPCS: 80053; 81001; 83690; 85025; 85610; 85730; 87086; 96361; 96374; 96375; 99284; J1885; J2270; J2405; J7030